=== PATIENT | female | born 1935 | race American Indian/Alaskan Native ===

== ENCOUNTER 2016-10-09 14:50 | Emergency (ER) | payer MEDICARE ==
--- NOTE | 2016-10-09 15:43 | Emergency Department Report ---
Entered by ULISES INFANTE, acting as scribe for HEIDY STARR NP. Chief Complaint: Abdominal Pain Stated Complaint: RT SIDE PAIN /HIP PAIN Time Seen by Provider: 10/09/16 15:34 - HPI History of Present Illness: 81 year old female with Hx frequent UTI who is non toxic appearing, in no acute distress, presents with c/o sharp right flank pain that is similar to pain with previous UTI. Denies N/V, fever, chills, urinary frequency, dysuria, hematuria, polydipsia, polyuria, pain shooting to extremities. Patient states she was most recently Dx with UTI on 08/09/16 and completed course of augmentin. - ROS Review of Systems: Reports right flank pain. Denies fever, chills, N/V, frequency, dysuria, hematuria, polydipsia, polyuria, shooting pain to extremities. - Exam Vital Signs: Vital Signs 10/09/16 15:13 Temperature 97.5 F L Pulse Rate 65 Respiratory 18 Rate Blood Pressure 152/65 O2 Sat by Pulse 100 Oximetry Physical Exam: Constitutional: Non toxic appearing, NAD. Abdomen: Abdomen is non-distended, soft with no tenderness to palpation in all quadrants. Right pelvic tenderness with palpation. Bowel sounds normal in all quadrants. No abdominal bruit. Back: Positive right CVA tenderness. MSE screening note: Focused history and physical exam performed. Due to findings the following was ordered: CBC, CMP, lactic acid, UA ED Disposition for MSE Condition: Stable Instructions: Abdominal Pain (ED) This documentation as recorded by the scribe,ULISES INFANTE,accurately reflects the service I personally performed and the decisions made by RO juarez MARTIN, BILL.
[2016-10-09 16:07] LABS: Basophils % (Auto) 0.8 % (0.0-1.8); Hematocrit 39.6 % (30.3-42.9); Hemoglobin 12.3 gm/dl (10.1-14.3); Mean Corpuscular HGB Conc 31 % (30-34); Mean Corpuscular Volume 72 fl (79-97); Platelet Count 179 K/mm3 (140-440); Red Blood Count 5.47 M/mm3 (3.65-5.03); Red Cell Distribution Width 16.7 % (13.2-15.2); White Blood Count 4.1 K/mm3 (4.5-11.0)
[2016-10-09 16:09] LABS: Mean Corpuscular Hemoglobin 23 pg (28-32)
[2016-10-09 16:36] LABS: Albumin 4.3 g/dL (3.9-5); Albumin/Globulin Ratio 1.3 %; BUN/Creatinine Ratio 20.9; Bilirubin,Total 0.5 mg/dL (0.1-1.2); Calcium 9.2 mg/dL (8.4-10.2); Chloride 100.8 mmol/L (98-107); Potassium 4.4 mmol/L (3.6-5.0); Total Protein 7.6 g/dL (6.3-8.2)
[2016-10-09] MEDS ORDERED: NORCO 7.5/325 PO ONE (16:45)
--- NOTE | 2016-10-09 16:52 | Emergency Department Report ---
HPI - General Chief Complaint: Abdominal Pain Time Seen by Provider: 10/09/16 16:36 - HPI HPI: Room 9 The patient is an 81-year-old female presenting with a chief complaint right flank pain. The patient states 2 weeks ago she developed right flank pain. Patient states she went to the emergency department in [place] twice for the above complaint. The patient states after the first visit she was placed on Macrobid and her symptoms improve however returned after she stopped taking antibiotics. The patient was placed on a ten-day course of Augmentin states she still has pain and right flank. Patient denies dysuria or hematuria. Patient denies nausea vomiting or fever. Patient gives her pain a score of 8/10 Location: Right flank Duration: 2 weeks Quality: Pain Severity: 8/10 Modifying factors: [see above] Context: [see above] Mode of transportation: [not driving] ED Past Medical Hx - Past Medical History Hx Hypertension: Yes Additional medical history: high cholesterol, 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, - Surgical History Past Surgical History?: No Additional Surgical History: partial hysterectomy, right knee replacement in 2010 - Family History Family history: no significant - Social History Smoking Status: Unknown if ever smoked Substance Use Type: None - Medications Home Medications: Home Medications Medication Instructions Recorded Confirmed Last Taken Type Diltiazem HCl [Diltiazem ER] 360 mg PO DAILY 02/26/13 04/15/15 04/15/15 History Losartan [Cozaar] 100 mg PO DAILY 02/26/13 04/15/15 04/15/15 History Acetaminophen [Acetaminophen TAB] 500 mg PO Q8H PRN #15 tablet 04/11/16 Unknown Rx Docusate Sodium [Colace] 100 mg PO BID PRN #20 capsule 10/09/16 Unknown Rx HYDROcodone/APAP 5-325 [[place] 1 - 2 each PO Q6HR PRN #20 tablet 10/09/16 Unknown Rx 5/325] ED Review of Systems ROS: Stated complaint: RT SIDE PAIN /HIP PAIN Other details as noted in HPI Comment: All other systems reviewed and negative Constitutional: denies: chills, fever Eyes: denies: eye pain, eye discharge, vision change ENT: denies: ear pain, throat pain Respiratory: denies: cough, shortness of breath, wheezing Cardiovascular: denies: chest pain, palpitations Endocrine: no symptoms reported Gastrointestinal: abdominal pain. denies: nausea, diarrhea Genitourinary: denies: urgency, dysuria, discharge Musculoskeletal: denies: back pain, joint swelling, arthralgia Skin: denies: rash, lesions Neurological: denies: headache, weakness, paresthesias Psychiatric: denies: anxiety, depression Hematological/Lymphatic: denies: easy bleeding, easy bruising Physical Exam - Physical Exam Vital Signs: Vital Signs 10/09/16 15:13 Temperature 97.5 F L Pulse Rate 65 Respiratory 18 Rate Blood Pressure 152/65 O2 Sat by Pulse 100 Oximetry Physical Exam: GENERAL: The patient is well-developed well-nourished female lying on stretcher not appearing to be in acute distress. [] HEENT: Normocephalic. Atraumatic. Extraocular motions are intact. Patient has moist mucous membranes. NECK: Supple. No meningitic signs are noted. Trachea midline CHEST/LUNGS: Clear to auscultation. There is no respiratory distress noted. HEART/CARDIOVASCULAR: Regular. There is no tachycardia. There is no gallop rub or murmur. ABDOMEN: Abdomen is soft, I'll tenderness to palpation in the right lower quadrant. Patient has normal bowel sounds. There is no abdominal distention. SKIN: There is no rash. There is no edema. There is no diaphoresis. NEURO: The patient is awake, alert, and oriented. The patient is cooperative. The patient has normal speech MUSCULOSKELETAL: There is no evidence of acute injury. ED Course Vital Signs 10/09/16 15:13 Temperature 97.5 F L Pulse Rate 65 Respiratory 18 Rate Blood Pressure 152/65 O2 Sat by Pulse 100 Oximetry ED Medical Decision Making - Lab Data Result diagrams: 10/09/16 15:42 10/09/16 15:42 Laboratory Tests 10/09/16 10/09/16 10/09/16 15:42 15:42 15:42 WBC 4.1 L RBC 5.47 H Hgb 12.3 Hct 39.6 MCV 72 L MCH 23 L MCHC 31 RDW 16.7 H Plt Count 179 Lymph % (Auto) 44.8 H Faulk % (Auto) 14.8 H Eos % (Auto) 2.0 Baso % (Auto) 0.8 Lymph # 1.8 Faulk # 0.6 Eos # 0.1 Baso # 0.0 Seg Neutrophils % 37.6 L Seg Neutrophils # 1.5 L Sodium 138 Potassium 4.4 Chloride 100.8 Carbon Dioxide 24 Anion Gap 18 BUN 23 H Creatinine 1.1 Estimated GFR 58 BUN/Creatinine Ratio 20.90 Glucose 82 Lactic Acid 0.70 Calcium 9.2 Total Bilirubin 0.50 AST 20 ALT 13 Alkaline Phosphatase 83 Total Protein 7.6 Albumin 4.3 Albumin/Globulin Ratio 1.3 Urine Color Urine Turbidity Urine pH Ur Specific [place] Urine Protein Urine Glucose (UA) Urine Ketones Urine Blood Urine Nitrite Urine Bilirubin Urine Urobilinogen Ur Leukocyte Esterase Urine WBC (Auto) Urine RBC (Auto) U Epithel Cells (Auto) Urine Mucus 10/09/16 16:05 WBC RBC Hgb Hct MCV MCH MCHC RDW Plt Count Lymph % (Auto) Faulk % (Auto) Eos % (Auto) Baso % (Auto) Lymph # Faulk # Eos # Baso # Seg Neutrophils % Seg Neutrophils # Sodium Potassium Chloride Carbon Dioxide Anion Gap BUN Creatinine Estimated GFR BUN/Creatinine Ratio Glucose Lactic Acid Calcium Total Bilirubin AST ALT Alkaline Phosphatase Total Protein Albumin Albumin/Globulin Ratio Urine Color Yellow Urine Turbidity Clear Urine pH 5.0 Ur Specific [place] 1.014 Urine Protein <15 mg/dl Urine Glucose (UA) Neg Urine Ketones Neg Urine Blood Neg Urine Nitrite Neg Urine Bilirubin Neg Urine Urobilinogen < 2.0 Ur Leukocyte Esterase Sm Urine WBC (Auto) 2.0 Urine RBC (Auto) 1.0 U Epithel Cells (Auto) 6.0 Urine Mucus Few - Radiology Data Radiology results: report reviewed, image reviewed (CT abdomen and pelvis) CT abdomen and pelvis (read by radiologist)-prominence of the right collecting system and right proximal ureter. Small calcifications measuring up to 3 mm seen at the level of the right distal ureter/UVJ. These may represent phleboliths and are unchanged compared to the prior examination. Difficult to completely exclude small distal ureteral/UVJ calculus. Consider CT urogram there is continued clinical concern. Normal caliber air-filled appendix. - Differential Diagnosis renal colic, pyelonephritis, appendicitis Critical care attestation.: If time is entered above; I have spent that time in minutes in the direct care of this critically ill patient, excluding procedure time. ED Disposition Clinical Impression: Right flank pain Disposition: DISCHARGED TO HOME OR SELFCARE Is pt being admited?: No Does the pt Need Aspirin: No Condition: Stable Instructions: Abdominal Pain (ED), Renal Colic (ED) Additional Instructions: Return to the emergency department immediately should you develop worsening symptoms, fever, inability to tolerate food or liquid or any other concerns. Prescriptions: Docusate Sodium [Colace] 100 mg PO BID PRN #20 capsule PRN Reason: Constipation HYDROcodone/APAP 5-325 [[place]roghan 5/325] 1 - 2 each PO Q6HR PRN #20 tablet PRN Reason: Pain Referrals: ARSH FUENTES MD [Staff Physician] - [facility], [place] (Dr. Fuentes is a urologist. Please follow up with him for further evaluation) Time of Disposition: 18:11
[2016-10-09 16:56] LABS: Bilirubin,Urine NEG (Negative); Blood,Urine NEG (Negative); Ketones,Urine NEG (Negative); Leukocyte Esterase,Urine SM (Negative); Mucus,Urine FEW /HPF; Nitrite,Urine NEG (Negative); Protein,Urine <15 mg/dL mg/dL (Negative); Urobilinogen,Urine < 2.0 mg/dL (<2.0)
--- NOTE | 2016-10-09 18:00 | Cat Scan Report ---
FINAL REPORT PROCEDURE: CT ABDOMEN PELVIS WO CON TECHNIQUE: Computerized axial tomography of the abdomen and pelvis was performed without intravenous contrast. This study is performed without intravascular contrast material and its sensitivity for abdominal and pelvic pathology, including neoplasms, inflammation, abscess, free fluid, thrombosis, arterial dissection and infarction, is reduced compared with a contrast enhanced study. HISTORY: Right flank pain. COMPARISON: CT scan dated 04/15/2015 FINDINGS: Visualized lower thorax: Mild bibasilar ground-glass opacities. Previously noted right lower lobe pulmonary nodule not confidently identified on the current exam. Liver: A few low-attenuation lesions in the liver, relatively unchanged. The largest measure 7.2 centimeters. Spleen: Normal size and attenuation. Gallbladder and biliary system: Gallstones. Pancreas: Normal. Adrenals: Normal. Kidneys: Prominence of the right collecting system and right proximal ureter, tapering to a more normal caliber. Small calcifications about the right distal ureter/UVJ, unchanged compared to the prior examination. These measure up to 3 millimeters. GI tract: Moderate stool throughout the colon. Normal caliber air-filled appendix without surrounding inflammation. Small hiatal hernia. Lymph nodes and mesentery: Normal. Vasculature: Mild atherosclerosis. Bladder: Normal. Reproductive organs: Hysterectomy. Peritoneum: No free fluid. Musculoskeletal structures: Mild osteopenia. Small multilevel osteophytes. Slight L4-5 anterolisthesis. L4-5 and L5-S1 facet arthropathy. Other: Bilateral fat filled inguinal and umbilical hernias. IMPRESSION: Prominence of the right collecting system and right proximal ureter. Small calcifications measuring up to 3 millimeters seen at the level of the right distal ureter/UVJ. These may represent phleboliths and are unchanged compared to the prior examination. Difficult to completely exclude small distal ureteral/UVJ calculus. Consider CT urogram if there is continued clinical concern. Normal caliber air-filled appendix. Moderate stool throughout the colon, consider constipation. Small hiatal hernia. Bibasilar ground-glass opacities, consider atelectasis or pneumonitis. Low-attenuation lesions in the liver, unchanged. Findings likely represent cyst or hemangioma. Consider CT scan with contrast or MRI for further characterization if there is continued clinical concern and patient has no contraindication to MRI. Gallstones. Fat filled inguinal and umbilical hernias. Other incidental findings as above..
[2016-10-09 19:15] VITALS: BP 146/75
== END 2016-10-09 19:01 | disposition home or self-care (01) ==
LOC: ED 14:50
DX: R10.31 Right lower quadrant pain (principal); I10 Essential (primary) hypertension; E78.00 Pure hypercholesterolemia, unspecified; Z90.711 Acquired absence of uterus with remaining cervical stump
CPT/HCPCS: 36415; 74176; 80053; 81001; 82140; 85025

== ENCOUNTER 2019-03-12 17:31 | Emergency (ER) | payer MEDICARE ==
[2019-03-12 17:41] VITALS: BP 161/66
--- NOTE | 2019-03-12 17:41 | Event Note ---
ED Screening Note Date of service: 03/12/19 Time: 17:37 ED Screening Note: 83 y/o female comes in for a 3 day history of right arm pain. NO recent falls or trauma. Took Tylenol but does not seem to help. PMH HTN. This initial assessment/diagnostic orders/clinical plan/treatment(s) is/are sub ject to change based on patients health status, clinical progression and re- assessment by fellow clinical providers in the ED. Further treatment and workup at subsequent clinical providers discretion. Patient/guardian urged not to elope from the ED as their condition may be serious if not clinically assessed and managed. Initial orders include:
--- NOTE | 2019-03-12 18:37 | XRay Report ---
XR shoulder 2+V RT INDICATION / CLINICAL INFORMATION: Right shoulder pain.. COMPARISON: None available. FINDINGS: BONES/JOINT(S): No acute fracture or subluxation. Mild DJD in the AC joint. No aggressive appearing b one lesions. SOFT TISSUES: No significant abnormality. ADDITIONAL FINDINGS: None. Signer Name: Ej Casey MD Signed: 03/12/2019 6:33 PM Workstation Name: [id number]
--- NOTE | 2019-03-12 19:04 | Emergency Department Report ---
HPI - General Chief Complaint: Extremity Problem,Nontraumatic Time Seen by Provider: 03/12/19 17:37 - HPI HPI: Room 33 The patient is an 83-year-old female presenting with a chief complaint of right shoulder pain. The patient states she's had intermittent pain in her right shoulder for the past 3 months. The patient states in December she fell injuring her right shoulder was taken to the hospital had x-rays performed which were negative. Patient states since then she's had intermittent pain in the right shoulder that increases with range of motion. Patient denies any recent trauma. ED Past Medical Hx - Past Medical History Previous Medical History?: Yes Hx Hypertension: Yes Additional medical history: high cholesterol, 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, - Surgical History Past Surgical History?: Yes Additional Surgical History: partial hysterectomy, right knee replacement in 2010 - Family History Family history: no significant - Social History Smoking Status: Never Smoker Substance Use Type: None - Medications Home Medications: Home Medications Medication Instructions Recorded Confirmed Last Taken Type Diltiazem HCl [Diltiazem ER] 360 mg PO DAILY 02/26/13 10/09/16 10/09/16 History Losartan [Cozaar] 100 mg PO DAILY 02/26/13 10/09/16 10/09/16 History Acetaminophen [Acetaminophen TAB] 500 mg PO Q8H PRN #15 tablet 04/11/16 10/09/16 10/09/16 Rx Docusate Sodium [Colace] 100 mg PO BID PRN #20 capsule 10/09/16 Unknown Rx HYDROcodone/APAP 5-325 [[place] 1 - 2 each PO Q6HR PRN #20 tablet 10/09/16 Unknown Rx 5/325] Acetaminophen [Tylenol Extra 1,000 mg PO QID PRN #30 tablet 04/21/18 Unknown Rx Strength] Cyclobenzaprine HCl [Flexeril 5 MG 5 mg PO TID PRN #30 tab 04/21/18 Unknown Rx TAB] Diclofenac Sodium [Voltaren] 1 applicatio TP QID PRN #1 tube 04/21/18 Unknown Rx traMADol [Ultram] 50 mg PO Q6HR PRN #14 tablet 03/12/19 Unknown Rx ED Review of Systems ROS: Stated complaint: ARM PAIN Other details as noted in HPI Constitutional: no symptoms reported Eyes: denies: eye pain ENT: denies: throat pain Respiratory: no symptoms reported Cardiovascular: denies: chest pain Endocrine: no symptoms reported Gastrointestinal: denies: abdominal pain Genitourinary: denies: dysuria Musculoskeletal: arthralgia, myalgia Neurological: denies: headache Physical Exam - Physical Exam Vital Signs: Vital Signs 03/12/19 17:40 Temperature 97.8 F Pulse Rate 64 Respiratory 16 Rate Blood Pressure 161/66 O2 Sat by Pulse 99 Oximetry Physical Exam: GENERAL: The patient is well-developed well-nourished female sitting in chair not appearing to be in acute distress. [] HEENT: Normocephalic. Atraumatic. Extraocular motions are intact. Patient has moist mucous membranes. NECK: Supple. Trachea midline CHEST/LUNGS: There is no respiratory distress noted. HEART/CARDIOVASCULAR: Regular. There is no tachycardia. 2+ right radial pulse SKIN: There is no rash. There is no edema. There is no diaphoresis. NEURO: The patient is awake, alert, and oriented. The patient is cooperative. The patient has no focal neurologic deficits. The patient has normal speech MUSCULOSKELETAL: There is slightly decreased range of motion of the right shoulder secondary to pain ED Course Vital Signs 03/12/19 17:40 Temperature 97.8 F Pulse Rate 64 Respiratory 16 Rate Blood Pressure 161/66 O2 Sat by Pulse 99 Oximetry ED Medical Decision Making - Radiology Data Radiology results: report reviewed (right shoulder x-ray), image reviewed (right shoulder x-ray) interpreted by me: Right shoulder x-ray-no acute fracture [facility] [address] [place] [address] XRay Report Signed Patient: DANIEL BENDER MR#: [id number] 2 : 1935 Acct:[id number] Age/Sex: 83 / F ADM Date: 03/12/19 Loc: ED Attending Dr: Ordering Physician: ADELINE LEMUS Date of Service: 03/12/19 Procedure(s): XR shoulder 2+V RT Accession Number(s): [id number] cc: ADELINE LEMUS Fluoro Time In Minutes: XR shoulder 2+V RT INDICATION / CLINICAL INFORMATION: Right shoulder pain.. COMPARISON: None available. FINDINGS: BONES/JOINT(S): No acute fracture or subluxation. Mild DJD in the AC joint. No aggressive appearing bone lesions. SOFT TISSUES: No significant abnormality. ADDITIONAL FINDINGS: None. Signer Name: Ej Casey MD Signed: 03/12/2019 6:33 PM Workstation Name: [id number] Transcribed By: SHY Dictated By: Ej Casey MD Electronically Authenticated By: Ej Casey MD Signed Date/Time: 03/12/191832 DD/ 31 TD/TT: - Differential Diagnosis rotator cuff injury, arthritis, Critical care attestation.: If time is entered above; I have spent that time in minutes in the direct care of this critically ill patient, excluding procedure time. ED Disposition Clinical Impression: Shoulder pain, right Disposition: DC-01 TO HOME OR SELFCARE Is pt being admited?: No Does the pt Need Aspirin: No Condition: Stable Instructions: Rotator Cuff Injury (ED), Shoulder Bursitis (ED), Shoulder Sprain (ED) Prescriptions: traMADol [Ultram] 50 mg PO Q6HR PRN #14 tablet PRN Reason: Pain Referrals: BRINA PEREZ MD [Staff Physician] - 3-5 Days (Dr. Perez is an orthopedic surgeon. Please follow up with him for further evaluation) Time of Disposition: 19:03
== END 2019-03-12 19:15 | disposition home or self-care (01) ==
LOC: ED 17:31
DX: M25.511 Pain in right shoulder (principal); I10 Essential (primary) hypertension

== ENCOUNTER 2019-05-22 18:15 | Emergency (ER) | payer MEDICARE ==
--- NOTE | 2019-05-22 21:24 | Event Note ---
ED Screening Note Date of service: 05/22/19 Time: 21:19 ED Screening Note: This is a 83 y.o. F. that presents to the ER with SOB since last night. Patient states she feel SOB and drowsy after taking macrobid. Patient states she was diagnosed with UTI yesterday and started taking macrobid last night. Reports symptoms started when she started taking medication. This initial assessment/diagnostic orders/clinical plan/treatment(s) is/are subject to change based on patients health status, clinical progression and re- assessment by fellow clinical providers in the ED. Further treatment and workup at subsequent clinical providers discretion. Patient/guardian urged not to elope from the ED as their condition may be serious if not clinically assessed and managed. Initial orders include: UA
[2019-05-22 22:53] LABS: Bilirubin,Urine NEG (Negative); Blood,Urine SM (Negative); Color,Urine Yellow (Yellow); Protein,Urine <15 mg/dL mg/dL (Negative); Urobilinogen,Urine < 2.0 mg/dL (<2.0); WBC,Urine < 1.0 /HPF (0.0-6.0)
[2019-05-23 00:36] LABS: Basophils # (Auto) 0.1 K/mm3 (0.0-0.1); Basophils % (Auto) 1.1 % (0.0-1.8); Eosinophils # (Auto) 0.3 K/mm3 (0.0-0.4); Eosinophils % (Auto) 6.4 % (0.0-4.3); Hematocrit 38.1 % (30.3-42.9); Hemoglobin 12.6 gm/dl (10.1-14.3); Lymphocytes # (Auto) 2.1 K/mm3 (1.2-5.4); Lymphocytes % (Auto) 39.1 % (13.4-35.0); Mean Corpuscular HGB Conc 33 % (30-34); Mean Corpuscular Volume 76 fl (79-97); Monocytes # (Auto) 0.6 K/mm3 (0.0-0.8); Platelet Count 203 K/mm3 (140-440); Red Blood Count 5.02 M/mm3 (3.65-5.03); Red Cell Distribution Width 15.8 % (13.2-15.2)
[2019-05-23 00:58] LABS: Albumin 4.2 g/dL (3.9-5); Calcium 9.8 mg/dL (8.4-10.2)
--- NOTE | 2019-05-23 00:59 | Emergency Department Report ---
ED General Adult HPI - General Chief complaint: Nausea/Vomiting/Diarrhea Stated complaint: UTI/VOMIT Time Seen by Provider: 05/22/19 21:19 Source: patient Mode of arrival: Ambulatory Limitations: No Limitations - History of Present Illness Initial comments: pt is an 83-year-old female presents the emergency room with complaints of an adverse medication reaction. The patient states that her urologist Dr. Fuentes started her on Macrobid for a UTI. she states that she started taking the medication 2 days ago. She states that when she takes the medication it makes her feel nauseous. She states that she is also had fatigue for the last few days since being diagnosed with a UTI. She denies any vomiting, diarrhea, fever, abdominal pain, urinary symptoms, chest pain, any other symptoms. She states she has a past history of hypertension. She states she has an allergy to aspirin and tramadol. - Related Data Home Medications Medication Instructions Recorded Confirmed Last Taken Diltiazem HCl [Diltiazem ER] 360 mg PO DAILY 02/26/13 10/09/16 10/09/16 Losartan [Cozaar] 100 mg PO DAILY 02/26/13 10/09/16 10/09/16 Previous Rx's Medication Instructions Recorded Last Taken Type Acetaminophen [Acetaminophen TAB] 500 mg PO Q8H PRN #15 tablet 04/11/16 10/09/16 Rx Docusate Sodium [Colace] 100 mg PO BID PRN #20 capsule 10/09/16 Unknown Rx HYDROcodone/APAP 5-325 [[place] 1 - 2 each PO Q6HR PRN #20 tablet 10/09/16 Unknown Rx 5/325] Acetaminophen [Tylenol Extra 1,000 mg PO QID PRN #30 tablet 04/21/18 Unknown Rx Strength] Cyclobenzaprine HCl [Flexeril 5 MG 5 mg PO TID PRN #30 tab 04/21/18 Unknown Rx TAB] Diclofenac Sodium [Voltaren] 1 applicatio TP QID PRN #1 tube 04/21/18 Unknown Rx Acetaminophen/Codeine [Tylenol 1 - 2 tab PO Q6H PRN #10 tab 03/12/19 Unknown Rx /Codeine # 3 tab] Ondansetron [Zofran Odt] 4 mg PO Q8HR PRN #10 tab.rapdis 05/23/19 Unknown Rx Allergies Allergy/AdvReac Type Severity Reaction Status Date / Time aspirin AdvReac Mild Nausea Verified 05/22/19 18:16 ED Review of Systems ROS: Stated complaint: UTI/VOMIT Other details as noted in HPI Comment: All other systems reviewed and negative ED Past Medical Hx - Past Medical History Hx Hypertension: Yes Additional medical history: high cholesterol, 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, - Surgical History Additional Surgical History: partial hysterectomy, right knee replacement in 2011 - Social History Smoking Status: Never Smoker Substance Use Type: None - Medications Home Medications: Home Medications Medication Instructions Recorded Confirmed Last Taken Type Diltiazem HCl [Diltiazem ER] 360 mg PO DAILY 02/26/13 10/09/16 10/09/16 History Losartan [Cozaar] 100 mg PO DAILY 02/26/13 10/09/16 10/09/16 History Acetaminophen [Acetaminophen TAB] 500 mg PO Q8H PRN #15 tablet 04/11/16 10/09/16 10/09/16 Rx Docusate Sodium [Colace] 100 mg PO BID PRN #20 capsule 10/09/16 Unknown Rx HYDROcodone/APAP 5-325 [[place] 1 - 2 each PO Q6HR PRN #20 tablet 10/09/16 Unknown Rx 5/325] Acetaminophen [Tylenol Extra 1,000 mg PO QID PRN #30 tablet 04/21/18 Unknown Rx Strength] Cyclobenzaprine HCl [Flexeril 5 MG 5 mg PO TID PRN #30 tab 04/21/18 Unknown Rx TAB] Diclofenac Sodium [Voltaren] 1 applicatio TP QID PRN #1 tube 04/21/18 Unknown Rx Acetaminophen/Codeine [Tylenol 1 - 2 tab PO Q6H PRN #10 tab 03/12/19 Unknown Rx /Codeine # 3 tab] Ondansetron [Zofran Odt] 4 mg PO Q8HR PRN #10 tab.rapdis 05/23/19 Unknown Rx ED Physical Exam - General Limitations: No Limitations General appearance: alert, in no apparent distress - Head Head exam: Present: atraumatic, normocephalic - Eye Eye exam: Present: normal appearance - ENT ENT exam: Present: mucous membranes moist - Respiratory Respiratory exam: Present: normal lung sounds bilaterally. Absent: respiratory distress, wheezes, rales, rhonchi, stridor, chest wall tenderness, accessory muscle use, decreased breath sounds, prolonged expiratory - Cardiovascular Cardiovascular Exam: Present: regular rate, normal rhythm, normal heart sounds. Absent: systolic murmur, diastolic murmur, rubs, gallop - GI/Abdominal GI/Abdominal exam: Present: soft, normal bowel sounds. Absent: distended, tenderness, guarding, rebound, rigid - Neurological Exam Neurological exam: Present: alert, oriented X3 - Psychiatric Psychiatric exam: Present: normal affect, normal mood - Skin Skin exam: Present: warm, dry, intact ED Course Vital Signs 05/22/19 05/22/19 05/23/19 21:20 22:31 01:17 Temperature 97.8 F 97.7 F 98.0 F Pulse Rate 72 62 65 Respiratory 18 12 16 Rate Blood Pressure 156/72 165/68 149/74 O2 Sat by Pulse 96 96 99 Oximetry ED Medical Decision Making - Lab Data Result diagrams: 05/23/19 00:21 05/23/19 00:21 Lab Results 05/22/19 05/23/19 05/23/19 Range/Units 22:07 00:21 00:21 WBC 5.3 (4.5-11.0) K/mm3 RBC 5.02 (3.65-5.03) M/mm3 Hgb 12.6 (10.1-14.3) gm/dl Hct 38.1 (30.3-42.9) % MCV 76 L (79-97) fl MCH 25 L (28-32) pg MCHC 33 (30-34) % RDW 15.8 H (13.2-15.2) % Plt Count 203 (140-440) K/mm3 Lymph % (Auto) 39.1 H (13.4-35.0) % Power % (Auto) 11.0 H (0.0-7.3) % Eos % (Auto) 6.4 H (0.0-4.3) % Baso % (Auto) 1.1 (0.0-1.8) % Lymph # 2.1 (1.2-5.4) K/mm3 Power # 0.6 (0.0-0.8) K/mm3 Eos # 0.3 (0.0-0.4) K/mm3 Baso # 0.1 (0.0-0.1) K/mm3 Seg Neutrophils % 42.4 (40.0-70.0) % Seg Neutrophils # 2.2 (1.8-7.7) K/mm3 Sodium 143 (137-145) mmol/L Potassium 3.9 (3.6-5.0) mmol/L Chloride 106.3 (98-107) mmol/L Carbon Dioxide 24 (22-30) mmol/L Anion Gap 17 mmol/L BUN 17 (7-17) mg/dL Creatinine 1.1 (0.7-1.2) mg/dL Estimated GFR 57 ml/min BUN/Creatinine Ratio 15 % Glucose 95 (65-100) mg/dL Calcium 9.8 (8.4-10.2) mg/dL Total Bilirubin 0.40 (0.1-1.2) mg/dL AST 13 (5-40) units/L ALT 7 (7-56) units/L Alkaline Phosphatase 89 (35-129) units/L Total Protein 7.4 (6.3-8.2) g/dL Albumin 4.2 (3.9-5) g/dL Albumin/Globulin Ratio 1.3 % Urine Color Yellow (Yellow) Urine Turbidity Clear (Clear) Urine pH 6.0 (5.0-7.0) Ur Specific [place] 1.009 (1.003-1.030) Urine Protein <15 mg/dl (Negative) mg/dL Urine Glucose (UA) Neg (Negative) mg/dL Urine Ketones Neg (Negative) mg/dL Urine Blood Sm (Negative) Urine Nitrite Neg (Negative) Urine Bilirubin Neg (Negative) Urine Urobilinogen < 2.0 (<2.0) mg/dL Ur Leukocyte Esterase Neg (Negative) Urine WBC (Auto) < 1.0 (0.0-6.0) /HPF Urine RBC (Auto) 5.0 (0.0-6.0) /HPF U Epithel Cells (Auto) < 1.0 (0-13.0) /HPF - Medical Decision Making pt is an 83-year-old female presents the emergency room with complaints of an adverse medication reaction. The patient states that her urologist Dr. Fuentes started her on Macrobid for a UTI. she states that she started taking the medication 2 days ago. She states that when she takes the medication it makes her feel nauseous. She states that she is also had fatigue for the last few days since being diagnosed with a UTI. She denies any vomiting, diarrhea, fever, abdominal pain, urinary symptoms, chest pain, any other symptoms. She states she has a past history of hypertension. She states she has an allergy to aspirin and tramadol. vitals are normal. UA is within normal limits. Labs are stable. Patient given prescription for zofran. advised pt to please take medica tion as prescribed 30 minutes prior to taking your antibiotic. Increase your water intake over the next several days. Please take your antibiotic with food. Follow-up with your urologist Dr. Fuentes in the next 2-3 days. Return to the emergency room for any new or worsening symptoms. Critical care attestation.: If time is entered above; I have spent that time in minutes in the direct care of this critically ill patient, excluding procedure time. ED Disposition Clinical Impression: Nausea Adverse drug reaction Qualifiers: Encounter type: initial encounter Qualified Code(s): T50.905A - Adverse effect of unspecified drugs, medicaments and biological substances, initial encounter Disposition: TO HOME OR SELFCARE Is pt being admited?: No Does the pt Need Aspirin: No Condition: Stable Additional Instructions: Please take medication as prescribed 30 minutes prior to taking your antibiotic. Increase your water intake over the next several days. Please take your antibiotic with food. Follow-up with your urologist Dr. Fuentes in the next 2-3 days. Return to the emergency room for any new or worsening symptoms. Prescriptions: Ondansetron [Zofran Odt] 4 mg PO Q8HR PRN #10 tab.rapdis PRN Reason: Nausea Referrals: ARSH FUENTES MD [Staff Physician] - 2-3 Days Time of Disposition: 01:09 Print Language: SETSWANA
[2019-05-23 01:19] VITALS: BP 149/74
== END 2019-05-23 01:19 | disposition home or self-care (01) ==
LOC: ED 18:15
DX: T37.8X5A Adverse effect of other specified systemic anti-infectives and antiparasitics, initial encounter (principal); R11.0 Nausea; Y92.89 Other specified places as the place of occurrence of the external cause
CPT/HCPCS: 36415; 80053; 81001; 85025; 99283

== ENCOUNTER 2019-09-07 08:47 | Emergency (ER) | payer MEDICARE ==
[2019-09-07] MEDS ORDERED: PANTOPRAZOLE 40 MG INJ IV ONE (09:45)
[2019-09-07] MEDS ORDERED: ONDANSETRON 4 MG/2 ML INJ IV ONE (09:45)
--- NOTE | 2019-09-07 09:51 | Emergency Department Report ---
ED Shortness of Breath HPI - General Chief Complaint: Dyspnea/Respdistress Stated Complaint: VOMITTING Time Seen by Provider: 09/07/19 09:43 Source: patient Mode of arrival: Ambulatory Limitations: No Limitations - History of Present Illness Initial Comments: Patient is 84 years old female with history of hypertension and bronchitis. Patient presented to the ER complaining of shortness of breath, nausea and vomiting started 4 days ago. Patient stated that she ate a pizza and since then she started having burning sensation in the epigastric area with shortness of breath and vomiting. Patient also stated that she has been having constipation and she took Pepto-Bismol and now she is having diarrhea 2. Patient denied any fever or chills. Patient is complaining of cough but denied any chest pain. MD Complaint: shortness of breath, cough -: days(s) (4) - Related Data Home Medications Medication Instructions Recorded Confirmed Last Taken Diltiazem HCl [Diltiazem ER] 360 mg PO DAILY 02/26/13 10/09/16 10/09/16 Losartan [Cozaar] 100 mg PO DAILY 02/26/13 10/09/16 10/09/16 Previous Rx's Medication Instructions Recorded Last Taken Type Acetaminophen [Acetaminophen TAB] 500 mg PO Q8H PRN #15 tablet 04/11/16 10/09/16 Rx Docusate Sodium [Colace] 100 mg PO BID PRN #20 capsule 10/09/16 Unknown Rx HYDROcodone/APAP 5-325 [[place] 1 - 2 each PO Q6HR PRN #20 tablet 10/09/16 Unknown Rx 5/325] Acetaminophen [Tylenol Extra 1,000 mg PO QID PRN #30 tablet 04/21/18 Unknown Rx Strength] Cyclobenzaprine HCl [Flexeril 5 MG 5 mg PO TID PRN #30 tab 04/21/18 Unknown Rx TAB] Diclofenac Sodium [Voltaren] 1 applicatio TP QID PRN #1 tube 04/21/18 Unknown Rx Acetaminophen/Codeine [Tylenol 1 - 2 tab PO Q6H PRN #10 tab 03/12/19 Unknown Rx /Codeine # 3 tab] Ondansetron [Zofran Odt] 4 mg PO Q8HR PRN #10 tab.rapdis 05/23/19 Unknown Rx Allergies Allergy/AdvReac Type Severity Reaction Status Date / Time aspirin AdvReac Mild Nausea Verified 05/22/19 18:16 ED Review of Systems ROS: Stated complaint: VOMITTING Other details as noted in HPI Comment: All other systems reviewed and negative Constitutional: denies: chills, fever Respiratory: cough, shortness of breath, SOB with exertion, SOB at rest. denies: orthopnea, wheezing Cardiovascular: denies: chest pain, palpitations Gastrointestinal: nausea, vomiting, constipation. denies: abdominal pain Musculoskeletal: denies: back pain ED Past Medical Hx - Past Medical History Previous Medical History?: Yes Hx Hypertension: Yes Additional medical history: high cholesterol, 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, - Surgical History Past Surgical History?: Yes Additional Surgical History: partial hysterectomy, right knee replacement in 2010 - Social History Smoking Status: Never Smoker Substance Use Type: None - Medications Home Medications: Home Medications Medication Instructions Recorded Confirmed Last Taken Type Diltiazem HCl [Diltiazem ER] 360 mg PO DAILY 02/26/13 10/09/16 10/09/16 History Losartan [Cozaar] 100 mg PO DAILY 02/26/13 10/09/16 10/09/16 History Acetaminophen [Acetaminophen TAB] 500 mg PO Q8H PRN #15 tablet 04/11/16 10/09/16 10/09/16 Rx Docusate Sodium [Colace] 100 mg PO BID PRN #20 capsule 10/09/16 Unknown Rx HYDROcodone/APAP 5-325 [[place] 1 - 2 each PO Q6HR PRN #20 tablet 10/09/16 Unknown Rx 5/325] Acetaminophen [Tylenol Extra 1,000 mg PO QID PRN #30 tablet 04/21/18 Unknown Rx Strength] Cyclobenzaprine HCl [Flexeril 5 MG 5 mg PO TID PRN #30 tab 04/21/18 Unknown Rx TAB] Diclofenac Sodium [Voltaren] 1 applicatio TP QID PRN #1 tube 04/21/18 Unknown Rx Acetaminophen/Codeine [Tylenol 1 - 2 tab PO Q6H PRN #10 tab 03/12/19 Unknown Rx /Codeine # 3 tab] Ondansetron [Zofran Odt] 4 mg PO Q8HR PRN #10 tab.rapdis 05/23/19 Unknown Rx ED Physical Exam - General Limitations: No Limitations General appearance: alert, in no apparent distress - Head Head exam: Present: atraumatic, normocephalic, normal inspection - Eye Eye exam: Present: normal appearance, PERRL - ENT ENT exam: Present: normal exam, normal orophraynx, mucous membranes moist - Neck Neck exam: Present: normal inspection, full ROM. Absent: tenderness, meningism us, lymphadenopathy, thyromegaly - Respiratory Respiratory exam: Present: normal lung sounds bilaterally - Cardiovascular Cardiovascular Exam: Present: regular rate, normal rhythm, normal heart sounds - GI/Abdominal GI/Abdominal exam: Present: soft, normal bowel sounds. Absent: distended, tenderness, guarding, rebound, rigid, organomegaly, mass, bruit, pulsatile mass, hernia - Extremities Exam Extremities exam: Present: full ROM, normal capillary refill. Absent: calf tenderness - Back Exam Back exam: Present: normal inspection, full ROM. Absent: CVA tenderness (R), CVA tenderness (L) - Neurological Exam Neurological exam: Present: alert, oriented X3, CN II-XII intact. Absent: motor sensory deficit - Skin Skin exam: Present: warm, intact, normal color ED Course Vital Signs 09/07/19 09/07/19 09/07/19 08:53 09:42 10:00 Temperature 97.5 F L Pulse Rate 71 63 Respiratory 18 19 Rate Blood Pressure 136/67 138/56 O2 Sat by Pulse 98 97 99 Oximetry 09/07/19 09/07/19 09/07/19 11:00 12:00 13:00 Temperature Pulse Rate 65 61 77 Respiratory 20 21 22 Rate Blood Pressure 146/60 130/61 130/61 O2 Sat by Pulse 97 98 100 Oximetry ED Medical Decision Making - Lab Data Result diagrams: 09/07/19 09:43 09/07/19 09:43 - EKG Data -: EKG Interpreted by Nv EKG shows normal: sinus rhythm Rate: normal - EKG Data Interpretation: no acute changes - Radiology Data Radiology results: report reviewed - Medical Decision Making Patient is 84 years old female with history of hypertension and bronchitis. Patient presented to the ER complaining of shortness of breath, nausea and vomiting started 4 days ago. Patient stated that she ate a pizza and since then she started having burning sensation in the epigastric area with shortness of breath and vomiting. Patient also stated that she has been having constipation and she took Pepto-Bismol and now she is having diarrhea 2. Patient denied any fever or chills. Patient is complaining of cough but denied any chest pain. Patient received Zofran and Protonix. Patient stated that she is feeling much better. Labs reviewed and is unremarkable. Chest x-ray is negative for acute finding. EKG showed no ST elevation or depression. Troponin is negative x2. Patient symptoms is most likely related to gastritis or GERD given the symptoms started after pizza on Saturday however patient still advised to follow-up with her primary care physician in 2 to 3 days for further outpatient testing and advised to return to the ER if she develop any new symptoms. Critical care attestation.: If time is entered above; I have spent that time in minutes in the direct care of this critically ill patient, excluding procedure time. ED Disposition Clinical Impression: Abdominal pain, Nausea and vomiting Disposition: DC-01 TO HOME OR SELFCARE Is pt being admited?: No Condition: Stable Instructions: Acute Nausea and Vomiting (ED), Abdominal Pain (ED) Referrals: BEATRIS SCHMIDT MD [Primary Care Provider] - 3-5 Days
[2019-09-07 10:18] LABS: Basophils % (Auto) 0.7 % (0.0-1.8); Eosinophils # (Auto) 0.2 K/mm3 (0.0-0.4); Hematocrit 39.1 % (30.3-42.9); Hemoglobin 12.4 gm/dl (10.1-14.3); Lymphocytes % (Auto) 22.6 % (13.4-35.0); Mean Corpuscular HGB Conc 32 % (30-34); Mean Corpuscular Volume 75 fl (79-97); Monocytes # (Auto) 0.5 K/mm3 (0.0-0.8); Platelet Count 178 K/mm3 (140-440); Red Blood Count 5.22 M/mm3 (3.65-5.03); Red Cell Distribution Width 16.5 % (13.2-15.2)
[2019-09-07 10:29] LABS: Partial Thromboplastin Time 23.2 Sec. (24.2-36.6)
[2019-09-07 10:34] LABS: BUN/Creatinine Ratio 15; Blood Urea Nitrogen 19 mg/dL (7-17); Hemolysis Index 19
[2019-09-07 10:39] LABS: Alanine Aminotransferase 8 units/L (7-56); Albumin 3.9 g/dL (3.9-5)
[2019-09-07 10:40] LABS: Bilirubin,Direct < 0.2 mg/dL (0-0.2)
--- NOTE | 2019-09-07 10:40 | XRay Report ---
CHEST 1 VIEW INDICATION: Dyspnea. COMPARISON: None FINDINGS: Support devices: None. Heart: Within normal limits. Lungs/Pleura: No acute air space or interstitial disease. Additional findings: None. IMPRESSION: No acute findings. Signer Name: Nicola Worley Jr, MD Signed: 09/07/2019 10:36 AM Workstation Name: [id number]
[2019-09-07 12:11] VITALS: BP 130/61
== END 2019-09-07 14:19 | disposition home or self-care (01) ==
LOC: ED 08:47
DX: R10.9 Unspecified abdominal pain (principal); R11.2 Nausea with vomiting, unspecified; Z79.899 Other long term (current) drug therapy; I10 Essential (primary) hypertension; F17.200 Nicotine dependence, unspecified, uncomplicated; Z88.6 Allergy status to analgesic agent; Z90.710 Acquired absence of both cervix and uterus
CPT/HCPCS: 36415; 71045; 80048; 80076; 83690; 83880; 84484; 85025; 85610; 85730; 93005; 93010; 96374; 96375; 99284; C9113; J2405

== ENCOUNTER 2020-02-29 14:17 | Emergency (ER) | payer MEDICARE ==
[2020-02-29 14:34] VITALS: BP 130/64
--- NOTE | 2020-02-29 18:24 | Emergency Department Report ---
ED Back Pain/Injury HPI - General Chief Complaint: Back Pain/Injury Stated Complaint: BACK PAIN Time Seen by Provider: 02/29/20 18:07 Source: patient Limitations: No Limitations - History of Present Illness Initial Comments: 84-year-old -[place] female presents to the emergency room complaining of lower back pain since Saturday. Patient denies any injury. Patient states that the pain is worse when she tries to get up. Patient reports that the pain shoots down the back of her left leg. Patient reports she has not taken anything for pain. She does have an asthma allergy of nausea. Patient denies any fall. Patient does share with me that she has urinary urgency and only produces a little urine. Patient denies any fever or chills no dysuria. Patient reports a past medical history of hypertension hypercholesterolemia partial hysterectomy and right knee replacement. MD Complaint: back pain Similar Symptoms Previously: No Consistency: intermittent Worsens With: sitting upright Associated Symptoms: difficulty urinating, other (Urinary urgency) - Related Data Home Medications Medication Instructions Recorded Confirmed Last Taken Diltiazem HCl [Diltiazem ER] 360 mg PO DAILY 02/26/13 10/09/16 10/09/16 Losartan [Cozaar] 100 mg PO DAILY 02/26/13 10/09/16 10/09/16 Previous Rx's Medication Instructions Recorded Last Taken Type Acetaminophen [Acetaminophen TAB] 500 mg PO Q8H PRN #15 tablet 04/11/16 10/09/16 Rx Docusate Sodium [Colace] 100 mg PO BID PRN #20 capsule 10/09/16 Unknown Rx HYDROcodone/APAP 5-325 [[place] 1 - 2 each PO Q6HR PRN #20 tablet 10/09/16 Unknown Rx 5/325] Acetaminophen [Tylenol Extra 1,000 mg PO QID PRN #30 tablet 04/21/18 Unknown Rx Strength] Cyclobenzaprine HCl [Flexeril 5 MG 5 mg PO TID PRN #30 tab 04/21/18 Unknown Rx TAB] Diclofenac Sodium [Voltaren] 1 applicatio TP QID PRN #1 tube 04/21/18 Unknown Rx Acetaminophen/Codeine [Tylenol 1 - 2 tab PO Q6H PRN #10 tab 03/12/19 Unknown Rx /Codeine # 3 tab] Ondansetron [Zofran Odt] 4 mg PO Q8HR PRN #10 tab.rapdis 05/23/19 Unknown Rx Esomeprazole Magnesium [NexIUM] 40 mg PO QDAY #30 capsule. 09/07/19 Unknown Rx Ondansetron [Zofran Odt] 4 mg PO Q8HR PRN #14 tab.rapdis 09/07/19 Unknown Rx Nitrofurantoin [place]/M-Cryst 100 mg PO Q12HR 10 Days #20 capsule 02/29/20 Unknown Rx [Macrobid CAP] Allergies Allergy/AdvReac Type Severity Reaction Status Date / Time aspirin AdvReac Mild Nausea Verified 05/22/19 18:16 ED Review of Systems ROS: Stated complaint: BACK PAIN Other details as noted in HPI Comment: All other systems reviewed and negative ED Past Medical Hx - Past Medical History Previous Medical History?: Yes Hx Hypertension: Yes Additional medical history: high cholesterol, 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, - Surgical History Past Surgical History?: Yes Additional Surgical History: partial hysterectomy, right knee replacement in 2010 - Social History Smoking Status: Never Smoker Substance Use Type: None - Medications Home Medications: Home Medications Medication Instructions Recorded Confirmed Last Taken Type Diltiazem HCl [Diltiazem ER] 360 mg PO DAILY 02/26/13 10/09/16 10/09/16 History Losartan [Cozaar] 100 mg PO DAILY 02/26/13 10/09/16 10/09/16 History Acetaminophen [Acetaminophen TAB] 500 mg PO Q8H PRN #15 tablet 04/11/16 10/09/16 10/09/16 Rx Docusate Sodium [Colace] 100 mg PO BID PRN #20 capsule 10/09/16 Unknown Rx HYDROcodone/APAP 5-325 [[place] 1 - 2 each PO Q6HR PRN #20 tablet 10/09/16 Unknown Rx 5/325] Acetaminophen [Tylenol Extra 1,000 mg PO QID PRN #30 tablet 04/21/18 Unknown Rx Strength] Cyclobenzaprine HCl [Flexeril 5 MG 5 mg PO TID PRN #30 tab 04/21/18 Unknown Rx TAB] Diclofenac Sodium [Voltaren] 1 applicatio TP QID PRN #1 tube 04/21/18 Unknown Rx Acetaminophen/Codeine [Tylenol 1 - 2 tab PO Q6H PRN #10 tab 03/12/19 Unknown Rx /Codeine # 3 tab] Ondansetron [Zofran Odt] 4 mg PO Q8HR PRN #10 tab.rapdis 05/23/19 Unknown Rx Esomeprazole Magnesium [NexIUM] 40 mg PO QDAY #30 capsule. 09/07/19 Unknown Rx Ondansetron [Zofran Odt] 4 mg PO Q8HR PRN #14 tab.rapdis 09/07/19 Unknown Rx Nitrofurantoin [place]/M-Cryst 100 mg PO Q12HR 10 Days #20 capsule 02/29/20 Unknow n Rx [Macrobid CAP] ED Physical Exam - General Limitations: No Limitations General appearance: alert, in no apparent distress - Head Head exam: Present: atraumatic, normocephalic - Eye Eye exam: Present: normal appearance - ENT ENT exam: Present: mucous membranes moist - Neck Neck exam: Present: normal inspection - Respiratory Respiratory exam: Present: normal lung sounds bilaterally. Absent: respiratory distress - Cardiovascular Cardiovascular Exam: Present: regular rate, normal rhythm. Absent: systolic murmur, diastolic murmur, rubs, gallop - GI/Abdominal GI/Abdominal exam: Present: soft, normal bowel sounds. Absent: distended, tenderness - Back Exam Back exam: Present: normal inspection - Neurological Exam Neurological exam: Present: alert, oriented X3 - Psychiatric Psychiatric exam: Present: normal affect, normal mood - Skin Skin exam: Present: warm, dry, intact, normal color. Absent: rash ED Course Vital Signs 02/29/20 14:32 Temperature 98.5 F Pulse Rate 73 Respiratory 20 Rate Blood Pressure 130/64 O2 Sat by Pulse 97 Oximetry ED Medical Decision Making - Lab Data Laboratory Tests 02/29/20 18:17 Urine Color Yellow Urine Turbidity Cloudy Urine pH 5.0 Ur Specific [place] 1.015 Urine Protein <15 mg/dl Urine Glucose (UA) Neg Urine Ketones Neg Urine Blood Sm Urine Nitrite Pos Urine Bilirubin Neg Urine Urobilinogen < 2.0 Ur Leukocyte Esterase Lg Urine WBC (Auto) > 182.0 H Urine RBC (Auto) 22.0 U Epithel Cells (Auto) 17.0 H Urine Bacteria (Auto) 1+ Hyaline Casts 2 Urine Mucus Few Urine Yeast (Budding) 1+ - Medical Decision Making 84-year-old -[place] female presents to the emergency room complaining of lower back pain since Saturday. Patient denies any injury. Patient states that the pain is worse when she tries to get up. Patient reports that the pain shoots down the back of her left leg. Patient reports she has not taken anything for pain. She does have an asthma allergy of nausea. Patient denies any fall. Patient does share with me that she has urinary urgency and only produces a little urine. Patient denies any fever or chills no dysuria. Patient reports a past medical history of hypertension hypercholesterolemia partial hysterectomy and right knee replacement. Patient appears to have a urinary tract infection. Will place patient on Macrobid. Critical care attestation.: If time is entered above; I have spent that time in minutes in the direct care of this critically ill patient, excluding procedure time. ED Disposition Clinical Impression: UTI (urinary tract infection) Disposition: - TO HOME OR SELFCARE Is pt being admited?: No Does the pt Need Aspirin: No Condition: Stable Instructions: Urinary Tract Infection in Women (ED) Additional Instructions: Complete antibiotics as prescribed. Follow-up with your primary care provider. Please be sure to increase your fluid intake. Prescriptions: Nitrofurantoin [place]/M-Cryst [Macrobid CAP] 100 mg PO Q12HR 10 Days #20 capsule Referrals: BELINDA IBARRA MD [Staff Physician] - 3-5 Days
[2020-02-29] MEDS ORDERED: ACETAMINOPHEN 325 MG TAB PO ONE (18:33)
[2020-02-29 18:55] LABS: Bacteria,Urine 1+ /HPF (Negative); Bilirubin,Urine NEG (Negative); Blood,Urine SM (Negative); Color,Urine Yellow (Yellow); Hyaline Casts,Urine 2 /LPF; Mucus,Urine FEW /HPF; Protein,Urine <15 mg/dL mg/dL (Negative); Urobilinogen,Urine < 2.0 mg/dL (<2.0)
[2020-02-29 18:57] LABS: WBC,Urine > 182.0 /HPF (0.0-6.0)
== END 2020-02-29 19:25 | disposition home or self-care (01) ==
LOC: ED 14:17
DX: N39.0 Urinary tract infection, site not specified (principal); Z88.6 Allergy status to analgesic agent
CPT/HCPCS: 81001; 87076; 87086; 87186; 99283

== ENCOUNTER 2020-04-28 17:13 | Emergency (ER) | payer MEDICARE ==
[2020-04-28 18:00] VITALS: BP 168/56
--- NOTE | 2020-04-28 18:05 | Emergency Department Report ---
Suture/Staple Removal - HPI Chief Complaint: Laceration/Recheck/Suture Stated Complaint: SUTURE REMOVAL Time Seen by Provider: 04/28/20 18:01 When Sutures or Dani Placed: 8-10 Days Ago Wound Location: Forehead ED Review of Systems ROS: Stated complaint: SUTURE REMOVAL Other details as noted in HPI Comment: All other systems reviewed and negative ED Past Medical Hx - Past Medical History Previous Medical History?: Yes Hx Hypertension: Yes Additional medical history: high cholesterol, 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, - Surgical History Additional Surgical History: partial hysterectomy, right knee replacement in 2011 - Social History Smoking Status: Never Smoker Substance Use Type: None - Medications Home Medications: Home Medications Medication Instructions Recorded Confirmed Last Taken Type Diltiazem HCl [Diltiazem ER] 360 mg PO DAILY 02/26/13 10/09/16 10/09/16 History Losartan [Cozaar] 100 mg PO DAILY 02/26/13 10/09/16 10/09/16 History Acetaminophen [Acetaminophen TAB] 500 mg PO Q8H PRN #15 tablet 04/11/16 10/09/16 10/09/16 Rx Docusate Sodium [Colace] 100 mg PO BID PRN #20 capsule 10/09/16 Unknown Rx HYDROcodone/APAP 5-325 [[place] 1 - 2 each PO Q6HR PRN #20 tablet 10/09/16 Unknown Rx 5/325] Acetaminophen [Tylenol Extra 1,000 mg PO QID PRN #30 tablet 04/21/18 Unknown Rx Strength] Cyclobenzaprine HCl [Flexeril 5 MG 5 mg PO TID PRN #30 tab 04/21/18 Unknown Rx TAB] Diclofenac Sodium [Voltaren] 1 applicatio TP QID PRN #1 tube 04/21/18 Unknown Rx Acetaminophen/Codeine [Tylenol 1 - 2 tab PO Q6H PRN #10 tab 03/12/19 Unknown Rx /Codeine # 3 tab] Ondansetron [Zofran Odt] 4 mg PO Q8HR PRN #10 tab.rapdis 05/23/19 Unknown Rx Esomeprazole Magnesium [NexIUM] 40 mg PO QDAY #30 capsule. 09/07/19 Unknown Rx Ondansetron [Zofran Odt] 4 mg PO Q8HR PRN #14 tab.lotus 09/07/19 Unknown Rx Nitrofurantoin [place]/M-Cryst 100 mg PO Q12HR 10 Days #20 capsule 02/29/20 Unknown Rx [Macrobid CAP] Suture Removal Exam - Exam General: Vital signs noted. No distress. Alert and acting appropriately. Wound: No Pathologic Erythema, No Tenderness, No Drainage, No Pus, No Wound Dehiscence Other Systems: All other systems reviewed and are unremarkable. ED Course Vital Signs 04/28/20 17:56 Temperature 98.0 F Pulse Rate 61 Respiratory 18 Rate Blood Pressure 168/56 O2 Sat by Pulse 100 Oximetry ED Recheck MDM - Differential Diagnosis Suture/Staple Removal Critical care attestation.: If time is entered above; I have spent that time in minutes in the direct care of this critically ill patient, excluding procedure time. ED Disposition Clinical Impression: Visit for suture removal Disposition: DC-01 TO HOME OR SELFCARE Is pt being admited?: No Does the pt Need Aspirin: No Condition: Stable Instructions: Wound Closure Removal, Care After Additional Instructions: Keep wound clean and dry. You can place a Band-Aid. Referrals: PRIMARY CARE, [Primary Care Provider] - 3-5 Days
== END 2020-04-28 18:10 | disposition home or self-care (01) ==
LOC: ED 17:13
DX: S01.81XA Laceration without foreign body of other part of head, initial encounter (principal); Z48.02 Encounter for removal of sutures; I10 Essential (primary) hypertension; Z90.710 Acquired absence of both cervix and uterus; Z98.890 Other specified postprocedural states; Z79.899 Other long term (current) drug therapy; X58.XXXA Exposure to other specified factors, initial encounter; Y93.89 Activity, other specified; Y92.89 Other specified places as the place of occurrence of the external cause; Y99.8 Other external cause status

== ENCOUNTER 2021-10-18 15:07 | Observation (INO) | payer MEDICARE ==
--- NOTE | 2021-10-18 16:46 | XRay Report ---
CHEST 1 VIEW INDICATION: SOB. COMPARISON: 09/07/2019 FINDINGS: SUPPORT DEVICES: None. HEART: Within normal limits. LUNGS/PLEURA: No acute air space or interstitial disease. ADDITIONAL FINDINGS: None. IMPRESSION: 1. No acute findings. Signer Name: Adriel Garsia MD Signed: 10/18/2021 4:41 PM Workstation Name: [id number]
[2021-10-18 17:13] LABS: Basophils % (Auto) 0.8 % (0.0-1.8); Eosinophils # (Auto) 0.2 K/mm3 (0.0-0.4); Eosinophils % (Auto) 4.8 % (0.0-4.3); Hematocrit 36.7 % (30.3-42.9); Hemoglobin 11.9 gm/dl (10.1-14.3); Lymphocytes # (Auto) 1.6 K/mm3 (1.2-5.4); Lymphocytes % (Auto) 31.9 % (13.4-35.0); Mean Corpuscular HGB Conc 32 % (30-34); Mean Corpuscular Volume 75 fl (79-97); Monocytes # (Auto) 0.5 K/mm3 (0.0-0.8); Monocytes % (Auto) 10.2 % (0.0-7.3); Platelet Count 197 K/mm3 (140-440); Red Blood Count 4.89 M/mm3 (3.65-5.03)
[2021-10-18 17:33] LABS: Alanine Aminotransferase 12 units/L (7-56); Albumin 3.9 g/dL (3.9-5); BUN/Creatinine Ratio 13; Blood Urea Nitrogen 25 mg/dL (7-17); Calcium 9.2 mg/dL (8.4-10.2); Hemolysis Index 5
--- NOTE | 2021-10-18 17:59 | Emergency Department Report ---
ED General Adult HPI - General Chief complaint: Dyspnea/Respdistress Stated complaint: PROBLEMS BREATHING Time Seen by Provider: 10/18/21 16:24 Source: patient Mode of arrival: Ambulatory Limitations: No Limitations - History of Present Illness Initial comments: Patient presents with complaints of SOB @ rest and on exertion. Denies PND, orthopnea, chest pain, palpitations, diaphoresis, leg swelling, pain in his/her calves, recent travel, immobilization, surgery, hospitalization, sex HRT/Hormonal contraceptive use. - Related Data Home Medications Medication Instructions Recorded Confirmed Last Taken Diltiazem HCl [Diltiazem ER] 360 mg PO DAILY 02/26/13 10/09/16 10/09/16 Losartan [Cozaar] 100 mg PO DAILY 02/26/13 10/09/16 10/09/16 Previous Rx's Medication Instructions Recorded Last Taken Type Acetaminophen [Acetaminophen TAB] 500 mg PO Q8H PRN #15 tablet 04/11/16 10/09/16 Rx Docusate Sodium [Colace] 100 mg PO BID PRN #20 capsule 10/09/16 Unknown Rx HYDROcodone/APAP 5-325 [[place] 1 - 2 each PO Q6HR PRN #20 tablet 10/09/16 Unknown Rx 5/325] Acetaminophen [Tylenol Extra 1,000 mg PO QID PRN #30 tablet 04/21/18 Unknown Rx Strength] Cyclobenzaprine HCl [Flexeril 5 MG 5 mg PO TID PRN #30 tab 04/21/18 Unknown Rx TAB] Diclofenac Sodium [Voltaren] 1 applicatio TP QID PRN #1 tube 04/21/18 Unknown Rx Acetaminophen/Codeine [Tylenol 1 - 2 tab PO Q6H PRN #10 tab 03/12/19 Unknown Rx /Codeine # 3 tab] Ondansetron [Zofran Odt] 4 mg PO Q8HR PRN #10 tab.rapdis 05/23/19 Unknown Rx Esomeprazole Magnesium [NexIUM] 40 mg PO QDAY #30 capsule. 09/07/19 Unknown Rx Ondansetron [Zofran Odt] 4 mg PO Q8HR PRN #14 tab.nanydis 09/07/19 Unknown Rx Nitrofurantoin [place]/M-Cryst 100 mg PO Q12HR 10 Days #20 capsule 02/29/20 Unknown Rx [Macrobid CAP] Allergies Allergy/AdvReac Type Severity Reaction Status Date / Time aspirin AdvReac Mild Nausea Verified 05/22/19 18:16 ED Review of Systems ROS: Stated complaint: PROBLEMS BREATHING Other details as noted in HPI Comment: All other systems reviewed and negative Constitutional: denies: chills, fever ED Past Medical Hx - Past Medical History Hx Hypertension: Yes Additional medical history: high cholesterol, 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, - Surgical History Additional Surgical History: partial hysterectomy, right knee replacement in 2011 - Social History Smoking Status: Never Smoker Substance Use Type: None - Medications Home Medications: Home Medications Medication Instructions Recorded Confirmed Last Taken Type Diltiazem HCl [Diltiazem ER] 360 mg PO DAILY 02/26/13 10/09/16 10/09/16 History Losartan [Cozaar] 100 mg PO DAILY 02/26/13 10/09/16 10/09/16 History Acetaminophen [Acetaminophen TAB] 500 mg PO Q8H PRN #15 tablet 04/11/16 10/09/16 10/09/16 Rx Docusate Sodium [Colace] 100 mg PO BID PRN #20 capsule 10/09/16 Unknown Rx HYDROcodone/APAP 5-325 [[place] 1 - 2 each PO Q6HR PRN #20 tablet 10/09/16 Unknown Rx 5/325] Acetaminophen [Tylenol Extra 1,000 mg PO QID PRN #30 tablet 04/21/18 Unknown Rx Strength] Cyclobenzaprine HCl [Flexeril 5 MG 5 mg PO TID PRN #30 tab 04/21/18 Unknown Rx TAB] Diclofenac Sodium [Voltaren] 1 applicatio TP QID PRN #1 tube 04/21/18 Unknown Rx Acetaminophen/Codeine [Tylenol 1 - 2 tab PO Q6H PRN #10 tab 03/12/19 Unknown Rx /Codeine # 3 tab] Ondansetron [Zofran Odt] 4 mg PO Q8HR PRN #10 tab.lotus 05/23/19 Unknown Rx Esomeprazole Magnesium [NexIUM] 40 mg PO QDAY #30 capsule. 09/07/19 Unknown Rx Ondansetron [Zofran Odt] 4 mg PO Q8HR PRN #14 tab.lotus 09/07/19 Unknown Rx Nitrofurantoin [place]/M-Cryst 100 mg PO Q12HR 10 Days #20 capsule 02/29/20 Unknown Rx [Macrobid CAP] ED Physical Exam - General Limitations: No Limitations General appearance: alert, in no apparent distress - Eye Eye exam: Present: PERRL, EOMI - ENT ENT exam: Present: mucous membranes moist, other (airway patent) - Neck Neck exam: Present: other (supple; no JVD) - Respiratory Respiratory exam: Present: other (good air entry, nml I:E, CTAB, no use of accessory muscles of respiration) - Cardiovascular Cardiovascular Exam: Present: regular rate. Absent: rubs, gallop - GI/Abdominal GI/Abdominal exam: Present: soft, normal bowel sounds. Absent: distended, tenderness - Extremities Exam Extremities exam: Present: other (1+ edema in LEs bilaterally; non tender calves; neg Dalton's sign bilaterally) - Back Exam Back exam: Present: full ROM. Absent: tenderness - Neurological Exam Neurological exam: Present: alert, oriented X3, CN II-XII intact. Absent: motor sensory deficit - Skin Skin exam: Present: warm, normal color ED Course Vital Signs 10/18/21 15:10 Temperature 98.8 F Pulse Rate 69 Respiratory 20 Rate Blood Pressure 145/69 [Right] O2 Sat by Pulse 97 Oximetry ED Medical Decision Making - Lab Data Result diagrams: 10/18/21 16:53 10/18/21 16:53 Laboratory Tests 10/18/21 10/18/21 10/18/21 16:53 16:53 16:53 WBC 4.9 RBC 4.89 Hgb 11.9 Hct 36.7 MCV 75 L MCH 24 L MCHC 32 RDW 15.0 Plt Count 197 Lymph % (Auto) 31.9 [place] % (Auto) 10.2 H Eos % (Auto) 4.8 H Baso % (Auto) 0.8 Lymph # (Auto) 1.6 [place] # (Auto) 0.5 Eos # (Auto) 0.2 Baso # (Auto) 0.0 Seg Neutrophils % 52.3 Seg Neutrophils # 2.6 D-Dimer 1634.54 H Sodium 139 Potassium 4.8 Chloride 104.0 Carbon Dioxide 23 Anion Gap 17 BUN 25 H Creatinine 1.9 H Estimated GFR 30 BUN/Creatinine Ratio 13 Glucose 94 Calcium 9.2 Total Bilirubin 0.30 AST 17 ALT 12 Alkaline Phosphatase 104 Troponin T < 0.010 NT-Pro-B Natriuret Pep 260.1 Total Protein 7.2 Albumin 3.9 Albumin/Globulin Ratio 1.2 baseline Cr < 1.3 CXR: no acute cardiopulmonary process EKG: HR 60, SR, nml VT, narrow QRS, no significant ST changes in contiguous leads LE Dopplers: no DVT Unable to perform CTA chest at this time given abnl Cr and GFR - Medical Decision Making Diff dz: need to r/o ACS, PE. Pneumonia, pneumothorax, anemia, pulmonary edema ruled out @ this time. Received NS @ 125 ml/hr Critical care attestation.: If time is entered above; I have spent that time in minutes in the direct care o f this critically ill patient, excluding procedure time. ED Disposition Clinical Impression: Shortness of breath, Elevated d-dimer, Elevated serum creatinine Disposition: ADMITTED INPATIENT Is pt being admited?: Yes Does the pt Need Aspirin: No Condition: Stable Time of Disposition: 18:00 (Patient admitted to Dr. Tubbs. Sign out was given by me to the admitting physician)
--- NOTE | 2021-10-18 20:01 | Vascular Lab Report ---
DUPLEX DOPPLER LOWER EXTREMITY VEINS, BILATERAL INDICATION / CLINICAL INFORMATION: elevated D-dimer; leg swelling. TECHNIQUE: Duplex doppler imaging was performed through the veins of both lower extremities using venous kassandra nori and other maneuvers. COMPARISON: None available. FINDINGS: RIGHT COMMON FEMORAL VEIN: Negative. RIGHT FEMORAL VEIN: Negative. RIGHT POPLITEAL VEIN: Negative. RIGHT CALF VEINS: Negative. LEFT COMMON FEMORAL VEIN: Negative. LEFT FEMORAL VEIN: Negative. LEFT POPLITEAL VEIN: Negative. LEFT CALF VEINS: Negative. ADDITIONAL FINDINGS: None. IMPRESSION: 1. No sonographic evidence for DVT in either lower extremity. Signer Name: Ej Casey MD Signed: 10/18/2021 7:57 PM Workstation Name: [id number]
[2021-10-18] MEDS ORDERED: SODIUM CHLORIDE 0.9% 1000 ML 1,000 ML IV SCH (20:45)
[2021-10-18] MEDS ORDERED: MORPHINE 4 MG/1 ML INJ IV PRN (21:36)
[2021-10-18] MEDS ORDERED: ACETAMINOPHEN 325 MG TAB PO PRN (21:36)
[2021-10-18] MEDS ORDERED: NON-FORMULARY EACH (Cyclobenzaprine Hcl [Flexeril 5 Mg Tab] 5 MG Tablet) PO PRN (21:38)
--- NOTE | 2021-10-18 21:45 | History and Physical Report ---
History of Present Illness Date of examination: 10/18/21 Date of admission: 10/18/21 Chief complaint: Dyspnea Respiratory distress History of present illness: 86 years old female with history of hypertension, high cholesterol, cyst in the liver was brought to the emergency room because of SOB @ rest and on exertion. Denies PND, orthopnea, chest pain, palpitations, diaphoresis, leg swelling, pain in his/her calves, recent travel, immobilization, surgery, hospitalization, sex HRT/Hormonal contraceptive use. In the emergency room patient D-dimer is 1634.54, but patient BUN is 25 and creatinine 1.9. So going to admit the patient we will put the patient on oxygen and neb treatment will do a VQ scan rule out PE Past History Past Medical History: hypertension, hyperlipidemia, other (Cyst in the liver) Past Surgical History: Other (partial hysterectomy, right knee replacement in 2010) Social history: no significant social history Family history: hypertension Medications and Allergies Allergies Allergy/AdvReac Type Severity Reaction Status Date / Time aspirin AdvReac Mild Nausea Verified 05/22/19 18:16 Home Medications Medication Instructions Recorded Confirmed Last Taken Type Diltiazem HCl [Diltiazem ER] 360 mg PO DAILY 02/26/13 10/09/16 10/09/16 History Losartan [Cozaar] 100 mg PO DAILY 02/26/13 10/09/16 10/09/16 History Acetaminophen [Acetaminophen TAB] 500 mg PO Q8H PRN #15 tablet 04/11/16 10/09/16 10/09/16 Rx Docusate Sodium [Colace] 100 mg PO BID PRN #20 capsule 10/09/16 Unknown Rx HYDROcodone/APAP 5-325 [[place] 1 - 2 each PO Q6HR PRN #20 tablet 10/09/16 Unknown Rx 5/325] Acetaminophen [Tylenol Extra 1,000 mg PO QID PRN #30 tablet 04/21/18 Unknown Rx Strength] Cyclobenzaprine HCl [Flexeril 5 MG 5 mg PO TID PRN #30 tab 04/21/18 Unknown Rx TAB] Diclofenac Sodium [Voltaren] 1 applicatio TP QID PRN #1 tube 04/21/18 Unknown Rx Acetaminophen/Codeine [Tylenol 1 - 2 tab PO Q6H PRN #10 tab 03/12/19 Unknown Rx /Codeine # 3 tab] Ondansetron [Zofran Odt] 4 mg PO Q8HR PRN #10 tab.rapdis 05/23/19 Unknown Rx Esomeprazole Magnesium [NexIUM] 40 mg PO QDAY #30 capsule. 09/07/19 Unknown Rx Ondansetron [Zofran Odt] 4 mg PO Q8HR PRN #14 tab.rapdis 09/07/19 Unknown Rx Nitrofurantoin [place]/M-Cryst 100 mg PO Q12HR 10 Days #20 capsule 02/29/20 Unknown Rx [Macrobid CAP] Active Meds: Active Medications Acetaminophen (Acetaminophen 325 Mg Tab) 650 mg PO Q4H PRN PRN Reason: Pain MILD(1-3)/Fever >100.5/[place]LEY Albuterol (Albuterol 2.5 Mg/3 Ml Nebu) 2.5 mg IH Q3HRT PRN PRN Reason: Shortness Of Breath Albuterol/Ipratropium (Ipratropium/Albuterol Sulfate 3 Ml Ampul.Neb) 1 ampul IH Q6HRT MIGUEL Diclofenac Sodium (Diclofenac Sodium 1% Topical Gel 100 Gm) 1 applic TP QID PRN PRN Reason: pain Docusate Sodium (Docusate Sodium 100 Mg Cap) 100 mg PO BID PRN PRN Reason: Constipation Famotidine (Famotidine 20 Mg Tab) 20 mg PO BID MIGUEL Heparin Sodium (Porcine) (Heparin 5,000 Unit/1 Ml Vial) 5,000 unit SUB-Q Q12HR MIGUEL Sodium Chloride (Nacl 0.9% 1000 Ml) 1,000 mls @ 125 mls/hr IV DIRECT MIGUEL Sodium Chloride (Nacl 0.45% 1000 Ml) 1,000 mls @ 100 mls/hr IV DIRECT MIGUEL Miscellaneous Medication (Cyclobenzaprine Hcl [Flexeril 5 Mg Tab]) 5 mg PO TID PRN PRN Reason: spasm muscle Miscellaneous Medication (Diltiazem Hcl [Diltiazem 24hr Er]) 360 mg PO DAILY MIGUEL Miscellaneous Medication (Losartan [Cozaar]) 100 mg PO DAILY MIGUEL Morphine Sulfate (Morphine 2 Mg/1 Ml Inj) 2 mg IV Q4H PRN PRN Reason: Pain, Moderate (4-6) Morphine Sulfate (Morphine 4 Mg/1 Ml Inj) 2 mg IV Q4H PRN PRN Reason: Pain , Severe (7-10) Nitrofurantoin Macroc[place] (Nitrofurantoin [place]/M-Cryst 100 Mg Cap) 100 mg PO Q12HR MIGUEL Ondansetron HCl (Ondansetron 4 Mg/2 Ml Inj) 4 mg IV Q8H PRN PRN Reason: Nausea And Vomiting Sodium Chloride (Sodium Chloride 0.9% 10 Ml Flush Syringe) 10 ml IV BID MIGUEL Sodium Chloride (Sodium Chloride 0.9% 10 Ml Flush Syringe) 10 ml IV PRN PRN PRN Reason: LINE FLUSH Review of Systems All systems: negative Cardiovascular: shortness of breath, dyspnea on exertion Respiratory: shortness of breath, dyspnea on exertion Exam - Constitutional Vitals: Temp Pulse Resp BP Pulse Ox 98.8 F 69 20 145/69 97 10/18/21 15:10 10/18/21 15:10 10/18/21 15:10 10/18/21 15:10 10/18/21 15:10 General appearance: Present: no acute distress, well-nourished - EENT Eyes: Present: PERRL ENT: hearing intact, clear oral mucosa - Neck Neck: Present: supple, normal ROM - Respiratory Respiratory effort: normal Respiratory: bilateral: diminished - Cardiovascular Heart Sounds: Present: S1 & S2. Absent: rub, click - Extremities Extremities: pulses symmetrical, No edema Peripheral Pulses: within normal limits - Abdominal General gastrointestinal: Present: soft, non-tender, non-distended, normal bowel sounds Female genitourinary: Present: normal - Integumentary Integumentary: Present: clear, warm, dry - Musculoskeletal Musculoskeletal: gait normal, strength equal bilaterally - Psychiatric Psychiatric: appropriate mood/affect, intact judgment & insight - Neurologic Neurologic: CNII-XII intact, moves all extremities HEART Score - HEART Score Troponin: Troponin T < 0.010 ng/mL (0.00-0.029) 10/18/21 16:53 Results - Labs CBC & Chem 7: 10/18/21 16:53 10/18/21 16:53 Labs: Laboratory Last Values WBC 4.9 K/mm3 (4.5-11.0) 10/18/21 16:53 RBC 4.89 M/mm3 (3.65-5.03) 10/18/21 16:53 Hgb 11.9 gm/dl (10.1-14.3) 10/18/21 16:53 Hct 36.7 % (30.3-42.9) 10/18/21 16:53 MCV 75 fl (79-97) L 10/18/21 16:53 MCH 24 pg (28-32) L 10/18/21 16:53 MCHC 32 % (30-34) 10/18/21 16:53 RDW 15.0 % (13.2-15.2) 10/18/21 16:53 Plt Count 197 K/mm3 (140-440) 10/18/21 16:53 Lymph % (Auto) 31.9 % (13.4-35.0) 10/18/21 16:53 [place] % (Auto) 10.2 % (0.0-7.3) H 10/18/21 16:53 Eos % (Auto) 4.8 % (0.0-4.3) H 10/18/21 16:53 Baso % (Auto) 0.8 % (0.0-1.8) 10/18/21 16:53 Lymph # (Auto) 1.6 K/mm3 (1.2-5.4) 10/18/21 16:53 [place] # (Auto) 0.5 K/mm3 (0.0-0.8) 10/18/21 16:53 Eos # (Auto) 0.2 K/mm3 (0.0-0.4) 10/18/21 16:53 Baso # (Auto) 0.0 K/mm3 (0.0-0.1) 10/18/21 16:53 Seg Neutrophils % 52.3 % (40.0-70.0) 10/18/21 16:53 Seg Neutrophils # 2.6 K/mm3 (1.8-7.7) 10/18/21 16:53 D-Dimer 1634.54 ng/mlDDU (0-234) H 10/18/21 16:53 Sodium 139 mmol/L (137-145) 10/18/21 16:53 Potassium 4.8 mmol/L (3.6-5.0) 10/18/21 16:53 Chloride 104.0 mmol/L (98-107) 10/18/21 16:53 Carbon Dioxide 23 mmol/L (22-30) 10/18/21 16:53 Anion Gap 17 mmol/L 10/18/21 16:53 BUN 25 mg/dL (7-17) H 10/18/21 16:53 Creatinine 1.9 mg/dL (0.6-1.2) H 10/18/21 16:53 Estimated GFR 30 ml/min 10/18/21 16:53 BUN/Creatinine Ratio 13 % 10/18/21 16:53 Glucose 94 mg/dL (65-100) 10/18/21 16:53 Calcium 9.2 mg/dL (8.4-10.2) 10/18/21 16:53 Total Bilirubin 0.30 mg/dL (0.1-1.2) 10/18/21 16:53 AST 17 units/L (5-40) 10/18/21 16:53 ALT 12 units/L (7-56) 10/18/21 16:53 Alkaline Phosphatase 104 units/L (35-129) 10/18/21 16:53 Troponin T < 0.010 ng/mL (0.00-0.029) 10/18/21 16:53 NT-Pro-B Natriuret Pep 260.1 pg/mL (0-900) 10/18/21 16:53 Total Protein 7.2 g/dL (6.3-8.2) 10/18/21 16:53 Albumin 3.9 g/dL (3.9-5) 10/18/21 16:53 Albumin/Globulin Ratio 1.2 % 10/18/21 16:53 - Imaging and Cardiology Chest x-ray: report reviewed Assessment and Plan VTE prophylaxis?: Chemical Plan of care discussed with patient/family: Yes - Patient Problems (1) Shortness of breath Current Visit: Yes Status: Acute Plan to address problem: Admit the patient to the medical floor. Oxygen via nasal cannula 3 L/min. DuoNeb by nebulizer every 4 hours. Albuterol via nebulizer every 4 hours as needed. We we will do a VQ scan rule out PE. (2) Elevated d-dimer Current Visit: Yes Status: Acute Plan to address problem: Oxygen via nasal cannula 3 L/min. DuoNeb by nebulizer every 4 hours. Albuterol via nebulizer every 4 hours as needed. We we will do a VQ scan rule out PE. (3) Hypertension Current Visit: Yes Status: Acute Plan to address problem: Hydralazine 10 mg IV every 6 hours as needed. We continue the home medication losartan 100 mg p.o. daily and diltiazem 360 mg p.o. daily (4) High cholesterol Current Visit: Yes Status: Acute Plan to address problem: Stable. We continue the home medication (5) Elevated serum creatinine Current Visit: Yes Status: Acute Plan to address problem: Avoid nephrotoxic drug. Renally dose medication. Half-normal saline at the rate of 100 cc/h. Recheck BMP in the morning (6) DVT prophylaxis Current Visit: Yes Status: Acute Plan to address problem: 5000 units subcu every 12 hours for DVT prophylaxis. Pepcid 20 mg p.o. twice daily for GI prophylaxis. Patient is a full code
[2021-10-18] MEDS ORDERED: FAMOTIDINE 20 MG TAB PO SCH (22:00)
[2021-10-18] MEDS ORDERED: DICLOFENAC SODIUM 1% TOPICAL GEL 100 GM TP PRN (22:00)
[2021-10-18] MEDS ORDERED: DOCUSATE SODIUM 100 MG CAP PO PRN (22:00)
[2021-10-18] MEDS ORDERED: ALBUTEROL 2.5 MG/3 ML NEBU IH PRN (22:30)
[2021-10-18] MEDS ORDERED: ONDANSETRON 4 MG/2 ML INJ IV PRN (22:30)
[2021-10-18] MEDS ORDERED: MORPHINE 2 MG/1 ML INJ IV PRN (22:30)
[2021-10-18] MEDS ORDERED: CYCLOBENZAPRINE 10 MG TAB PO PRN (23:30)
[2021-10-18] MEDS: HEPARIN 5,000 UNIT/1 ML VIAL SUB-Q SCH (23:41)
[2021-10-18] MEDS: NITROFURANTOIN MONOHYD/M-CRYST 100 MG CAP PO SCH (23:46)
[2021-10-19] MEDS ORDERED: MORPHINE 4 MG/1 ML INJ IV PRN (01:18)
[2021-10-19] MEDS: SODIUM CHLORIDE 0.45% 1000 ML 1,000 ML IV SCH ×2 (04:04→16:57)
[2021-10-19 05:20] LABS: Basophils % (Auto) 0.8 % (0.0-1.8); Eosinophils # (Auto) 0.4 K/mm3 (0.0-0.4); Eosinophils % (Auto) 7.1 % (0.0-4.3); Hematocrit 36.5 % (30.3-42.9); Hemoglobin 11.6 gm/dl (10.1-14.3); Lymphocytes # (Auto) 1.9 K/mm3 (1.2-5.4); Lymphocytes % (Auto) 37.4 % (13.4-35.0); Mean Corpuscular HGB Conc 32 % (30-34); Mean Corpuscular Volume 75 fl (79-97); Monocytes # (Auto) 0.6 K/mm3 (0.0-0.8); Monocytes % (Auto) 11.9 % (0.0-7.3); Platelet Count 190 K/mm3 (140-440); Red Blood Count 4.85 M/mm3 (3.65-5.03); Red Cell Distribution Width 15.4 % (13.2-15.2)
[2021-10-19 05:43] LABS: Calcium 9.3 mg/dL (8.4-10.2)
--- NOTE | 2021-10-19 08:49 | Progress Note ---
Assessment and Plan Assessment and plan: --Acute hypoxic respiratory failure/requiring supplemental oxygen Continue oxygen via nasal cannula 3 L/min. Titrate and wean as tolerated Nebulizers , Currently on room air saturating well --Elevated d-dimer VQ scan low probability for PE, lower extremity Doppler negative for DVT --Hypertension Hydralazine 10 mg IV every 6 hours as needed. Continue current antihypertensives --High cholesterol Stable. We continue the home medication --Unsteady gait/elderly; Fall precautions, physical therapy Patient already has a cane, requests walker -Acute kidney injury /vasomotor nephropathy Avoid nephrotoxic drug. Renally dose medication. Half-normal saline at the rate of 100 cc/h. Recheck BMP in the morning -- DVT prophylaxis 5000 units subcu every 12 hours for DVT prophylaxis. Pepcid 20 mg p.o. twice daily for GI prophylaxis. Patient is a full code Hospitalist Physical - Constitutional Vitals: Temp Pulse Resp BP Pulse Ox 98.8 F 88 20 148/62 98 10/18/21 15:10 10/19/21 02:02 10/19/21 02:43 10/19/21 02:02 10/19/21 02:43 General appearance: Present: no acute distress, well-nourished HEART Score - HEART Score Troponin: Troponin T < 0.010 ng/mL (0.00-0.029) 10/18/21 16:53 Results - Labs CBC & Chem 7: 10/19/21 04:47 10/19/21 04:47 Labs: Laboratory Last Values WBC 5.2 K/mm3 (4.5-11.0) 10/19/21 04:47 RBC 4.85 M/mm3 (3.65-5.03) 10/19/21 04:47 Hgb 11.6 gm/dl (10.1-14.3) 10/19/21 04:47 Hct 36.5 % (30.3-42.9) 10/19/21 04:47 MCV 75 fl (79-97) L 10/19/21 04:47 MCH 24 pg (28-32) L 10/19/21 04:47 MCHC 32 % (30-34) 10/19/21 04:47 RDW 15.4 % (13.2-15.2) H 10/19/21 04:47 Plt Count 190 K/mm3 (140-440) 10/19/21 04:47 Lymph % (Auto) 37.4 % (13.4-35.0) H 10/19/21 04:47 [place] % (Auto) 11.9 % (0.0-7.3) H 10/19/21 04:47 Eos % (Auto) 7.1 % (0.0-4.3) H 10/19/21 04:47 Baso % (Auto) 0.8 % (0.0-1.8) 10/19/21 04:47 Lymph # (Auto) 1.9 K/mm3 (1.2-5.4) 10/19/21 04:47 [place] # (Auto) 0.6 K/mm3 (0.0-0.8) 10/19/21 04:47 Eos # (Auto) 0.4 K/mm3 (0.0-0.4) 10/19/21 04:47 Baso # (Auto) 0.0 K/mm3 (0.0-0.1) 10/19/21 04:47 Seg Neutrophils % 42.8 % (40.0-70.0) 10/19/21 04:47 Seg Neutrophils # 2.2 K/mm3 (1.8-7.7) 10/19/21 04:47 D-Dimer 1634.54 ng/mlDDU (0-234) H 10/18/21 16:53 Sodium 142 mmol/L (137-145) 10/19/21 04:47 Potassium 4.2 mmol/L (3.6-5.0) 10/19/21 04:47 Chloride 106.8 mmol/L (98-107) 10/19/21 04:47 Carbon Dioxide 25 mmol/L (22-30) 10/19/21 04:47 Anion Gap 14 mmol/L 10/19/21 04:47 BUN 23 mg/dL (7-17) H 10/19/21 04:47 Creatinine 1.6 mg/dL (0.6-1.2) H 10/19/21 04:47 Estimated GFR 37 ml/min 10/19/21 04:47 BUN/Creatinine Ratio 14 % 10/19/21 04:47 Glucose 82 mg/dL (65-100) 10/19/21 04:47 Calcium 9.3 mg/dL (8.4-10.2) 10/19/21 04:47 Total Bilirubin 0.30 mg/dL (0.1-1.2) 10/18/21 16:53 AST 17 units/L (5-40) 10/18/21 16:53 ALT 12 units/L (7-56) 10/18/21 16:53 Alkaline Phosphatase 104 units/L (35-129) 10/18/21 16:53 Troponin T < 0.010 ng/mL (0.00-0.029) 10/18/21 16:53 NT-Pro-B Natriuret Pep 260.1 pg/mL (0-900) 10/18/21 16:53 Total Protein 7.2 g/dL (6.3-8.2) 10/18/21 16:53 Albumin 3.9 g/dL (3.9-5) 10/18/21 16:53 Albumin/Globulin Ratio 1.2 % 10/18/21 16:53 Mercado/IV: Voiding Method Bedside Commode Active Medications - Current Medications Current Medications: Generic Name Dose Route Start Last Admin Trade Name Freq PRN Reason Stop Dose Admin Acetaminophen 650 mg 10/18/21 21:36 Acetaminophen 325 Mg Tab PO Q4H PRN Pain MILD(1-3)/Fever >100.5/CONLEY Albuterol 2.5 mg 10/18/21 22:30 Albuterol 2.5 Mg/3 Ml Nebu IH Q3HRT PRN Shortness Of Breath Albuterol/Ipratropium 1 ampul 10/19/21 02:00 Ipratropium/Albuterol Sulfate 3 Ml Ampul.Neb IH Q6HRT MIGUEL Cyclobenzaprine HCl 5 mg 10/18/21 23:30 Cyclobenzaprine 10 Mg Tab PO TID PRN Muscle Spasm Diclofenac Sodium 1 applic 10/18/21 22:00 Diclofenac Sodium 1% Topical Gel 100 Gm TP QID PRN pain Diltiazem HCl 120 mg 10/19/21 10:00 Diltiazem Cd 120 Mg Cap PO QDAY MIGUEL Diltiazem HCl 240 mg 10/19/21 10:00 Diltiazem Cd 240 Mg Cap PO QDAY MIGUEL Docusate Sodium 100 mg 10/18/21 22:00 Docusate Sodium 100 Mg Cap PO BID PRN Constipation Famotidine 10 mg 10/19/21 10:00 Famotidine 10 Mg Tab PO BID MIGUEL Heparin Sodium (Porcine) 5,000 unit 10/18/21 22:00 10/18/21 23:41 Heparin 5,000 Unit/1 Ml Vial SUB-Q 5,000 unit Q12HR MIGUEL Administration Sodium Chloride 1,000 mls @ 100 mls/hr 10/18/21 22:00 10/19/21 04:04 Nacl 0.45% 1000 Ml IV 100 mls/hr DIRECT MIGUEL Administration Losartan Potassium 100 mg 10/19/21 10:00 Losartan 50 Mg Tab PO QDAY MIGUEL Morphine Sulfate 2 mg 10/18/21 22:30 Morphine 2 Mg/1 Ml Inj IV Q4H PRN Pain, Moderate (4-6) Ondansetron HCl 4 mg 10/18/21 22:30 Ondansetron 4 Mg/2 Ml Inj IV Q8H PRN Nausea And Vomiting Sodium Chloride 10 ml 10/18/21 22:00 10/19/21 02:59 Sodium Chloride 0.9% 10 Ml Flush Syringe IV Not Given BID MIGUEL Sodium Chloride 10 ml 10/18/21 21:36 Sodium Chloride 0.9% 10 Ml Flush Syringe IV PRN PRN LINE FLUSH
[2021-10-19] MEDS: IPRATROPIUM/ALBUTEROL SULFATE 3 ML AMPUL.NEB IH SCH ×4 (09:23→21:19)
[2021-10-19] MEDS: dilTIAZem CD 240 MG CAP PO SCH (09:56)
[2021-10-19] MEDS: FAMOTIDINE 10 MG TAB PO SCH ×2 (09:56→22:00)
[2021-10-19] MEDS: dilTIAZem CD 120 MG CAP PO SCH (09:56)
[2021-10-19] MEDS: LOSARTAN 50 MG TAB PO SCH (09:56)
[2021-10-19] MEDS: NITROFURANTOIN MONOHYD/M-CRYST 100 MG CAP PO SCH (09:57)
[2021-10-19] MEDS: HEPARIN 5,000 UNIT/1 ML VIAL SUB-Q SCH ×2 (09:57→21:43)
[2021-10-19] MEDS ORDERED: NON-FORMULARY EACH (Losartan [Cozaar] 100 MG Tablet) PO SCH (10:00)
[2021-10-19] MEDS ORDERED: DILTIAZEM HCL 240 MG PO SCH (10:00)
--- NOTE | 2021-10-19 12:22 | Nuclear Medicine Report ---
NM perfusion only lung scan INDICATION / CLINICAL INFORMATION: Elevated D-dimer. TRACER: Technetium 99m MAA 5.5 mCi IV injection. COMPARISON: Chest x-ray previous day. FINDINGS: Following injection of the above tracer, perfusion imaging was performed in 8 projections. Perfusion imaging is relatively symmetric. No suspicious perfusion defect. IMPRESSION: No suspicious perfusion defect. Signer Name: Wan Salvador MD Signed: 10/19/2021 12:16 PM Workstation Name: [id number]
--- NOTE | 2021-10-19 14:26 | Discharge Summary ---
Providers - Providers Date of Admission: 10/18/21 21:36 Date of discharge: 10/19/21 Attending physician: JOHAN FLYNN 10/19/21 14:22 Physical Therapy Evaluation and Treat [CONS] Routine Reason For Exam: General debility/unsteady gait/evaluate/DC needs Comment: Primary care physician: WEAVER AXMINSTER Hospitalization Condition: Stable Exam - Constitutional Vitals: Temp Pulse Resp BP Pulse Ox 97.3 F L 77 22 174/73 100 10/19/21 12:22 10/19/21 12:22 10/19/21 12:22 10/19/21 12:22 10/19/21 12:22 Plan Follow up with: PRIMARY CARE, [Primary Care Provider] - 7 Days
[2021-10-20] MEDS: IPRATROPIUM/ALBUTEROL SULFATE 3 ML AMPUL.NEB IH SCH ×3 (02:10→13:37)
[2021-10-20] MEDS: SODIUM CHLORIDE 0.45% 1000 ML 1,000 ML IV SCH (06:29)
--- NOTE | 2021-10-20 09:36 | Electrocardiograph Report ---
[facility] Test Date: 2021-10-18 Test Time: 15:21:08 Pat Name: DANIEL BENDER Department: Room: A383 1 Gender: F Interventional Pain Physician: ALEX : 1935 Requested By: NERY ASHBY Order Number: [id number] Reading MD: Gage Garibay Measurements Intervals [place] Rate: 66 P: 63 SC: 182 QRS: -24 QRSD: 110 T: 41 QT: 441 QTc: 462 Interpretive Statements Sinus rhythm No previous ECG available for comparison Electronically Signed On 10-20-2021 9:36:12 EDT by Gage Garibay
--- NOTE | 2021-10-20 09:39 | Electrocardiograph Report ---
[facility] Test Date: 2021-10-18 Test Time: 16:44:17 Pat Name: DANIEL BENDER Department: Room: A383 1 Gender: F Brickmason Apprentice: BUCK : 1935 Requested By: NERY ASHBY Order Number: [id number] Reading MD: Gage Garibay Measurements Intervals [place] Rate: 58 P: 0 MI: 168 QRS: 4 QRSD: 112 T: 51 QT: 475 QTc: 467 Interpretive Statements Sinus bradycardia Anterior infarct, old No significant change from EKG done approximately one hour ago. Electronically Signed On 10-20-2021 9:38:33 EDT by Gage Garibay
[2021-10-20] MEDS: HEPARIN 5,000 UNIT/1 ML VIAL SUB-Q SCH (10:50)
[2021-10-20] MEDS: LOSARTAN 50 MG TAB PO SCH (10:53)
[2021-10-20] MEDS: FAMOTIDINE 10 MG TAB PO SCH (10:53)
[2021-10-20] MEDS: dilTIAZem CD 240 MG CAP PO SCH (10:55)
[2021-10-20] MEDS: dilTIAZem CD 120 MG CAP PO SCH (10:55)
[2021-10-20 12:31] VITALS: BP 143/61
--- NOTE | 2021-10-20 12:40 | Progress Note ---
Assessment and Plan Assessment and plan: -- Acute hypoxic respiratory failure; Requiring supplemental oxygen on admission Patient was on 3 L nasal cannula oxygen Patient received nebulizers supportive care VQ scan low probability for PE Currently on room air O2, saturating 94% Home O2 eval evaluation --Elevated d-dimer VQ scan low probability for PE Lower extremity venous Doppler negative for DVT --Hypertension Well-controlled Continue current medications --Dyslipidemia Stable. Statin -- Acute kidney injury/vasomotor nephropathy Gentle hydration , plenty of oral fluids , avoid nephrotoxin Monitor renal function creatinine levels trending down --Unsteady gait ; Elderly patient, patient uses cane Recommend physical therapy Prescription for rolling walker --DVT prophylaxis 5000 units subcu every 12 hours for DVT prophylaxis. epcid 20 mg p.o. twice daily for GI prophylaxis. Patient is a full code Patient is medically stable for discharge Follow-up with primary care physician per schedule Plan of care reviewed with the patient and her nurse Hospitalist Physical - Constitutional Vitals: Temp Pulse Resp BP Pulse Ox 97.3 F L 67 20 143/61 100 10/20/21 12:08 10/20/21 12:08 10/20/21 12:08 10/20/21 12:08 10/20/21 12:08 General appearance: Present: no acute distress, well-nourished HEART Score - HEART Score Troponin: Troponin T < 0.010 ng/mL (0.00-0.029) 10/18/21 16:53 Results - Labs CBC & Chem 7: 10/19/21 04:47 10/19/21 04:47 Labs: Laboratory Last Values WBC 5.2 K/mm3 (4.5-11.0) 10/19/21 04:47 RBC 4.85 M/mm3 (3.65-5.03) 10/19/21 04:47 Hgb 11.6 gm/dl (10.1-14.3) 10/19/21 04:47 Hct 36.5 % (30.3-42.9) 10/19/21 04:47 MCV 75 fl (79-97) L 10/19/21 04:47 MCH 24 pg (28-32) L 10/19/21 04:47 MCHC 32 % (30-34) 10/19/21 04:47 RDW 15.4 % (13.2-15.2) H 10/19/21 04:47 Plt Count 190 K/mm3 (140-440) 10/19/21 04:47 Lymph % (Auto) 37.4 % (13.4-35.0) H 10/19/21 04:47 Bowie % (Auto) 11.9 % (0.0-7.3) H 10/19/21 04:47 Eos % (Auto) 7.1 % (0.0-4.3) H 10/19/21 04:47 Baso % (Auto) 0.8 % (0.0-1.8) 10/19/21 04:47 Lymph # (Auto) 1.9 K/mm3 (1.2-5.4) 10/19/21 04:47 Bowie # (Auto) 0.6 K/mm3 (0.0-0.8) 10/19/21 04:47 Eos # (Auto) 0.4 K/mm3 (0.0-0.4) 10/19/21 04:47 Baso # (Auto) 0.0 K/mm3 (0.0-0.1) 10/19/21 04:47 Seg Neutrophils % 42.8 % (40.0-70.0) 10/19/21 04:47 Seg Neutrophils # 2.2 K/mm3 (1.8-7.7) 10/19/21 04:47 D-Dimer 1634.54 ng/mlDDU (0-234) H 10/18/21 16:53 Sodium 142 mmol/L (137-145) 10/19/21 04:47 Potassium 4.2 mmol/L (3.6-5.0) 10/19/21 04:47 Chloride 106.8 mmol/L (98-107) 10/19/21 04:47 Carbon Dioxide 25 mmol/L (22-30) 10/19/21 04:47 Anion Gap 14 mmol/L 10/19/21 04:47 BUN 23 mg/dL (7-17) H 10/19/21 04:47 Creatinine 1.6 mg/dL (0.6-1.2) H 10/19/21 04:47 Estimated GFR 37 ml/min 10/19/21 04:47 BUN/Creatinine Ratio 14 % 10/19/21 04:47 Glucose 82 mg/dL (65-100) 10/19/21 04:47 Calcium 9.3 mg/dL (8.4-10.2) 10/19/21 04:47 Total Bilirubin 0.30 mg/dL (0.1-1.2) 10/18/21 16:53 AST 17 units/L (5-40) 10/18/21 16:53 ALT 12 units/L (7-56) 10/18/21 16:53 Alkaline Phosphatase 104 units/L (35-129) 10/18/21 16:53 Troponin T < 0.010 ng/mL (0.00-0.029) 10/18/21 16:53 NT-Pro-B Natriuret Pep 260.1 pg/mL (0-900) 10/18/21 16:53 Total Protein 7.2 g/dL (6.3-8.2) 10/18/21 16:53 Albumin 3.9 g/dL (3.9-5) 10/18/21 16:53 Albumin/Globulin Ratio 1.2 % 10/18/21 16:53 Mercado/IV: Voiding Method Toilet Active Medications - Current Medications Current Medications: Generic Name Dose Route Start Last Admin Trade Name Freq PRN Reason Stop Dose Admin Acetaminophen 650 mg 10/18/21 21:36 Acetaminophen 325 Mg Tab PO Q4H PRN Pain MILD(1-3)/Fever >100.5/CONLEY Albuterol 2.5 mg 10/18/21 22:30 Albuterol 2.5 Mg/3 Ml Nebu IH Q3HRT PRN Shortness Of Breath Albuterol/Ipratropium 1 ampul 10/19/21 02:00 10/20/21 09:03 Ipratropium/Albuterol Sulfate 3 Ml Ampul.Neb IH 1 ampul Q6HRT MIGEUL Administration Cyclobenzaprine HCl 5 mg 10/18/21 23:30 Cyclobenzaprine 10 Mg Tab PO TID PRN Muscle Spasm Diclofenac Sodium 1 applic 10/18/21 22:00 Diclofenac Sodium 1% Topical Gel 100 Gm TP QID PRN pain Diltiazem HCl 120 mg 10/19/21 10:00 10/20/21 10:55 Diltiazem Cd 120 Mg Cap PO 120 mg QDAY MIGUEL Administration Diltiazem HCl 240 mg 10/19/21 10:00 10/20/21 10:55 Diltiazem Cd 240 Mg Cap PO 240 mg QDAY MIGUEL Administration Docusate Sodium 100 mg 10/18/21 22:00 Docusate Sodium 100 Mg Cap PO BID PRN Constipation Famotidine 10 mg 10/19/21 10:00 10/20/21 10:53 Famotidine 10 Mg Tab PO 10 mg BID MIGUEL Administration Heparin Sodium (Porcine) 5,000 unit 10/18/21 22:00 10/20/21 10:50 Heparin 5,000 Unit/1 Ml Vial SUB-Q 5,000 unit Q12HR MIGUEL Administration Sodium Chloride 1,000 mls @ 100 mls/hr 10/18/21 22:00 10/20/21 06:29 Nacl 0.45% 1000 Ml IV 100 mls/hr DIRECT MIGUEL Administration Losartan Potassium 100 mg 10/19/21 10:00 10/20/21 10:53 Losartan 50 Mg Tab PO 100 mg QDAY MIGUEL Administration Morphine Sulfate 2 mg 10/18/21 22:30 Morphine 2 Mg/1 Ml Inj IV Q4H PRN Pain, Moderate (4-6) Ondansetron HCl 4 mg 10/18/21 22:30 Ondansetron 4 Mg/2 Ml Inj IV Q8H PRN Nausea And Vomiting Sodium Chloride 10 ml 10/18/21 22:00 10/20/21 10:56 Sodium Chloride 0.9% 10 Ml Flush Syringe IV 10 ml BID MIGUEL Administration Sodium Chloride 10 ml 10/18/21 21:36 Sodium Chloride 0.9% 10 Ml Flush Syringe IV PRN PRN LINE FLUSH
--- NOTE | 2021-10-20 13:39 | Discharge Summary ---
Providers - Providers Date of Admission: 10/18/21 21:36 Date of discharge: 10/20/21 Attending physician: JOHAN FLYNN 10/19/21 14:22 Physical Therapy Evaluation and Treat [CONS] Routine Comment: Reason For Exam: General debility/unsteady gait/evaluate/DC needs Primary care physician: ROOFING FOREMAN Hospitalization Condition: Stable Disposition: 01 HOME / SELF CARE / HOMELESS Core Measure Documentation - Palliative Care Palliative Care/ Comfort Measures: Not Applicable - Core Measures Any of the following diagnoses?: none Exam - Constitutional Vitals: Temp Pulse Resp BP Pulse Ox 97.3 F L 67 20 143/61 100 10/20/21 12:08 10/20/21 12:08 10/20/21 12:08 10/20/21 12:08 10/20/21 12:08 Plan Activity: advance as tolerated, fall precautions Diet: other (Cardiac diet) Additional Instructions: Fall precautions. Have worsening symptoms contact MD or go to the nearest emergency room as needed. Advised strongly to use cane/walker to prevent falls. Follow-up primary care physician in 1 week. Advised to see private money order clerk in 1 week[check BMP at PMD or nephrology office]. See private Follow up with: TIMA LOPEZ MD [Primary Care Provider] - 7 Days ZHENG CALLAHAN MD [Staff Physician] - 7 Days Prescriptions: HYDROcodone/APAP 5-325 [[place] 5-325 mg TAB] 1 - 2 each PO Q6HR PRN #20 tablet PRN Reason: Pain
== END 2021-10-20 18:15 | disposition home or self-care (01) ==
LOC: ED 15:07 → 3A 21:36 → INTOOBSV 21:36 → 3A 23:20
PROVIDERS: ADMIT Hospitalist; ATTEND Internal Medicine
DX: J96.01 Acute respiratory failure with hypoxia (principal); I10 Essential (primary) hypertension; N17.0 Acute kidney failure with tubular necrosis; E78.00 Pure hypercholesterolemia, unspecified; R77.8 Other specified abnormalities of plasma proteins; R79.89 Other specified abnormal findings of blood chemistry; M10.9 Gout, unspecified; E78.5 Hyperlipidemia, unspecified; Z90.710 Acquired absence of both cervix and uterus; Z96.651 Presence of right artificial knee joint; Z79.899 Other long term (current) drug therapy; Z98.890 Other specified postprocedural states
CPT/HCPCS: 36415; 71045; 78580; 80048; 80053; 83880; 84484; 85025; 85379; 93005; 93970; 94640; 96360; 96361; 96372; 97162; 99285; A9540; G0378; J1644; J7030; J3490